=== PATIENT | female | born 1965 | race African-American/Black ===

== ENCOUNTER 2016-11-07 08:43 | Emergency (ER) | payer MEDICAID ==
[2016-11-07 09:01] VITALS: BP 132/87
[2016-11-07] MEDS ORDERED: HYDROmorphone 1 MG/ML Syringe IM ONE (09:17)
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
--- NOTE | 2016-11-07 09:47 | CT ---
Head CT Technique: Multiple axial sections through the brain were obtained. Intravenous contrast was not utilized. Comparison: Previous head CT study of 08/04/16. Findings: Ventricles along with basal cisterns and sulci over the convexities appear within normal limits for the patient's age. Stable low density area is noted within the left basal ganglia. Aneurysm clip is seen within the right suprasellar cistern. Incidental calcifications are seen within the tentorium and within the interhemispheric falx. Low density encephalomalacia is seen within the inferior left temporal lobe with adjacent craniotomy. No acute calvarial abnormality is seen. Impression: 1. Stable findings as noted above. Nothing acute is identified on noncontrast head CT study. Diagnostic code #2
--- NOTE | 2016-11-07 09:51 | CT ---
CT cervical spine Technique: Multiple axial sections were obtained from above C1 inferiorly to the bottom of T1. Reconstructed sagittal and coronal images were reviewed. Comparison: Previous cervical spine plain film of 10/07/14 is available. Findings: Slight degenerative change is noted between the dens and anterior arch of C1. Vertebral body heights and disc spaces are preserved. No bony central or bony neural foraminal stenosis is seen. No fracture is identified. No abnormal subluxation is seen on the reconstructed sagittal images. Lucent lesions are identified within C3 and C4. Minimal degenerative change is scattered within the apophyseal joints. Minimal posterior and anterior spurring is noted at C5-6. Impression: 1. Minimal degenerative change. 2. Lucent lesion within C3 and C4 believed to be benign if patient has no primary carcinoma. 3. No acute fracture or abnormal subluxation is seen. Diagnostic code #3
== END 2016-11-07 11:23 | disposition home or self-care (01) ==
LOC: JD.ED 08:43
DX: M54.2 Cervicalgia (principal); G44.209 Tension-type headache, unspecified, not intractable; I10 Essential (primary) hypertension; J45.909 Unspecified asthma, uncomplicated; F41.8 Other specified anxiety disorders; Z98.890 Other specified postprocedural states; Z90.710 Acquired absence of both cervix and uterus; Z87.891 Personal history of nicotine dependence; Z79.899 Other long term (current) drug therapy; Z88.0 Allergy status to penicillin; Z88.5 Allergy status to narcotic agent; Z88.6 Allergy status to analgesic agent; Z88.8 Allergy status to other drugs, medicaments and biological substances
CPT/HCPCS: 70450; 72125; 96372; 99284; J1170

== ENCOUNTER 2016-11-29 15:03 | Emergency (ER) | payer MEDICAID ==
[2016-11-29 15:20] VITALS: BP 148/91
[2016-11-29] MEDS ORDERED: diphenhydrAMINE 50 MG/ML SDV IM ONE (15:44)
[2016-11-29] MEDS ORDERED: Metoclopramide 10 MG/2 ML SDV IM ONE (15:44)
[2016-11-29] MEDS ORDERED: Haloperidol Lactate 5 MG/ML SDV IM ONE (15:44)
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
[2016-11-29] MEDS ORDERED: Dexamethasone 10 MG/ML SDV IM ONE (16:56)
== END 2016-11-29 17:26 | disposition home or self-care (01) ==
LOC: JD.ED 15:03
DX: G43.909 Migraine, unspecified, not intractable, without status migrainosus (principal); Z87.891 Personal history of nicotine dependence; I10 Essential (primary) hypertension; Z90.710 Acquired absence of both cervix and uterus; Z79.899 Other long term (current) drug therapy; Z88.8 Allergy status to other drugs, medicaments and biological substances; Z88.5 Allergy status to narcotic agent; Z88.0 Allergy status to penicillin; Z91.048 Other nonmedicinal substance allergy status
CPT/HCPCS: 96372; 96374; 99283; J1100; J1200; J1630; J2765

== ENCOUNTER 2016-11-30 17:15 | Emergency (ER) | payer MEDICAID ==
[2016-11-30 17:33] VITALS: BP 166/94
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
== END 2016-11-30 18:25 | disposition home or self-care (01) ==
LOC: JD.ED 17:15
DX: M54.2 Cervicalgia (principal); I10 Essential (primary) hypertension; J45.909 Unspecified asthma, uncomplicated; F41.9 Anxiety disorder, unspecified; F32.9 Major depressive disorder, single episode, unspecified; G43.909 Migraine, unspecified, not intractable, without status migrainosus; Z88.0 Allergy status to penicillin; Z88.8 Allergy status to other drugs, medicaments and biological substances; Z91.018 Allergy to other foods; Z88.5 Allergy status to narcotic agent; Z79.899 Other long term (current) drug therapy; Z90.710 Acquired absence of both cervix and uterus; Z87.891 Personal history of nicotine dependence
CPT/HCPCS: 99283

== ENCOUNTER 2017-01-08 12:39 | Emergency (ER) | payer MEDICAID ==
[2017-01-08 12:56] VITALS: BP 142/94
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
[2017-01-08] MEDS ORDERED: Acetaminophen/oxyCODONE 325-5 MG Tab PO ONE (13:22)
[2017-01-08] MEDS ORDERED: predniSONE 20 MG Tab PO ONE (13:23)
[2017-01-08] MEDS ORDERED: Ondansetron 4 MG Tab.DIS PO ONE (13:23)
== END 2017-01-08 13:37 | disposition home or self-care (01) ==
LOC: JD.ED 12:39
DX: M06.9 Rheumatoid arthritis, unspecified (principal); M79.7 Fibromyalgia; I10 Essential (primary) hypertension; J45.909 Unspecified asthma, uncomplicated; F41.9 Anxiety disorder, unspecified; F32.9 Major depressive disorder, single episode, unspecified; Z88.1 Allergy status to other antibiotic agents; Z88.0 Allergy status to penicillin; Z88.5 Allergy status to narcotic agent; Z79.899 Other long term (current) drug therapy; Z90.710 Acquired absence of both cervix and uterus
CPT/HCPCS: 99283; A9270

== ENCOUNTER 2017-02-13 06:28 | Emergency (ER) | payer MEDICAID ==
[2017-02-13] MEDS ORDERED: Ondansetron 4 MG Tab.DIS PO ONE (07:00)
[2017-02-13] MEDS ORDERED: HYDROmorphone 1 MG/ML Syringe IM ONE (07:00)
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
[2017-02-13 07:27] VITALS: BP 126/79
== END 2017-02-13 07:28 | disposition home or self-care (01) ==
LOC: JD.ED 06:28
DX: M54.2 Cervicalgia (principal); M54.6 Pain in thoracic spine; I10 Essential (primary) hypertension; J45.909 Unspecified asthma, uncomplicated; M19.90 Unspecified osteoarthritis, unspecified site; F41.9 Anxiety disorder, unspecified; F32.9 Major depressive disorder, single episode, unspecified; Z90.710 Acquired absence of both cervix and uterus; Z85.42 Personal history of malignant neoplasm of other parts of uterus; Z87.891 Personal history of nicotine dependence; Z79.899 Other long term (current) drug therapy; Z88.6 Allergy status to analgesic agent; Z91.041 Radiographic dye allergy status; Z88.0 Allergy status to penicillin; Z88.5 Allergy status to narcotic agent; Z91.018 Allergy to other foods
CPT/HCPCS: 96372; 99283; A9270; J1170

== ENCOUNTER 2017-03-06 16:44 | Emergency (ER) | payer MEDICAID ==
[2017-03-06 16:52] VITALS: BP 153/99
[2017-03-06] MEDS ORDERED: Ondansetron 4 MG Tab.DIS PO ONE (17:15)
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
== END 2017-03-06 17:23 | disposition home or self-care (01) ==
LOC: JD.ED 16:44
DX: M54.5 Low back pain (principal); J45.909 Unspecified asthma, uncomplicated; F32.9 Major depressive disorder, single episode, unspecified; M19.90 Unspecified osteoarthritis, unspecified site; Z90.710 Acquired absence of both cervix and uterus; F17.210 Nicotine dependence, cigarettes, uncomplicated; Z85.42 Personal history of malignant neoplasm of other parts of uterus; Z79.899 Other long term (current) drug therapy; Z88.0 Allergy status to penicillin; Z88.5 Allergy status to narcotic agent; Z88.6 Allergy status to analgesic agent; Z88.8 Allergy status to other drugs, medicaments and biological substances; Z91.048 Other nonmedicinal substance allergy status
CPT/HCPCS: 99283; A9270

== ENCOUNTER 2017-03-16 23:16 | Emergency (ER) | payer MEDICAID ==
[2017-03-16 23:33] VITALS: BP 171/96
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
[2017-03-17] MEDS ORDERED: HYDROmorphone 1 MG/ML Syringe IVPUSH ONE ×2 (00:11→01:50)
[2017-03-17] MEDS ORDERED: diphenhydrAMINE 50 MG/ML SDV IVPUSH ONE (00:11)
[2017-03-17] MEDS ORDERED: Metoclopramide 10 MG/2 ML SDV IVPUSH ONE (00:11)
[2017-03-17] MEDS ORDERED: Sodium Chloride 0.9% 1,000 ML IV SCH (00:15)
--- NOTE | 2017-03-18 12:16 | CT ---
Head CT Technique: Multiple axial sections through the brain were obtained. Intravenous contrast was not utilized. Comparison: Prior head CT exam of 11/07/16. Findings: Ventricles along with basal cisterns and sulci over the convexities appear within normal limits for the patient's age. Stable left basal ganglia density is seen. Encephalomalacia and prior craniotomy is noted within the left temporal region which is stable. Aneurysm clip is again noted within the right side of the suprasellar cistern. Additional metallic density seen to the left side of the suprasellar cistern within the anterior left temporal fossa. No other abnormal parenchymal densities are seen. No evidence of intracranial hemorrhage. No midline shift or mass effect is seen. Incidental calcifications within the cerebellar tentorium and interhemispheric falx is seen which is stable. Bone window settings show no acute calvarial abnormality. Impression: 1. Stable findings as described above. Nothing acute is identified on noncontrast head CT exam. Diagnostic code #3 Agree with preliminary report issued by [facility] ([facility] preliminary report dictated on 03/17/17, 2:17 AM Central Time)
== END 2017-03-17 02:32 | disposition home or self-care (01) ==
LOC: JD.ED 23:16
DX: S00.03XA Contusion of scalp, initial encounter (principal); G43.009 Migraine without aura, not intractable, without status migrainosus; I10 Essential (primary) hypertension; J45.909 Unspecified asthma, uncomplicated; M19.90 Unspecified osteoarthritis, unspecified site; F41.9 Anxiety disorder, unspecified; F17.210 Nicotine dependence, cigarettes, uncomplicated; F32.9 Major depressive disorder, single episode, unspecified; Z88.6 Allergy status to analgesic agent; Z88.0 Allergy status to penicillin; Z88.5 Allergy status to narcotic agent; Z91.041 Radiographic dye allergy status; Z79.899 Other long term (current) drug therapy; Z90.710 Acquired absence of both cervix and uterus; W18.49XA Other slipping, tripping and stumbling without falling, initial encounter
CPT/HCPCS: 70450; 96361; 96374; 96375; 96376; 99284; J1170; J1200; J2765; J7040

== ENCOUNTER 2017-05-07 21:59 | Emergency (ER) | payer MEDICAID ==
[2017-05-07 22:15] VITALS: BP 158/91
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
[2017-05-07] MEDS ORDERED: diphenhydrAMINE 50 MG/ML SDV IM ONE (22:34)
[2017-05-07] MEDS ORDERED: Haloperidol Lactate 5 MG/ML SDV IM ONE (22:34)
[2017-05-07] MEDS ORDERED: Dexamethasone 10 MG/ML SDV IM ONE (22:34)
[2017-05-07] MEDS ORDERED: Metoclopramide 10 MG/2 ML SDV IM ONE (22:34)
== END 2017-05-07 23:45 | disposition home or self-care (01) ==
LOC: JD.ED 21:59
DX: G43.909 Migraine, unspecified, not intractable, without status migrainosus (principal); F32.9 Major depressive disorder, single episode, unspecified; F17.210 Nicotine dependence, cigarettes, uncomplicated; Z79.899 Other long term (current) drug therapy; Z88.5 Allergy status to narcotic agent; Z88.6 Allergy status to analgesic agent; Z88.8 Allergy status to other drugs, medicaments and biological substances; Z91.041 Radiographic dye allergy status
CPT/HCPCS: 96372; 99283; J1100; J1200; J1630; J2765

== ENCOUNTER 2017-09-20 18:21 | Emergency (ER) | payer MEDICAID ==
[2017-09-20 18:35] VITALS: BP 148/86
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
== END 2017-09-20 19:10 | disposition home or self-care (01) ==
LOC: JD.ED 18:21
DX: M06.9 Rheumatoid arthritis, unspecified (principal); G89.4 Chronic pain syndrome; F17.210 Nicotine dependence, cigarettes, uncomplicated; I10 Essential (primary) hypertension; M19.90 Unspecified osteoarthritis, unspecified site; F41.9 Anxiety disorder, unspecified; F32.9 Major depressive disorder, single episode, unspecified; Z88.0 Allergy status to penicillin; Z88.6 Allergy status to analgesic agent; Z91.02 Food additives allergy status; Z91.041 Radiographic dye allergy status; Z79.899 Other long term (current) drug therapy; Z91.09 Other allergy status, other than to drugs and biological substances
CPT/HCPCS: 99282; 99283

== ENCOUNTER 2017-12-22 15:15 | Emergency (ER) | payer MEDICAID ==
[2017-12-22 15:24] VITALS: BP 150/114
[2017-12-22] MEDS ORDERED: Diphtheria,Pertussis(Acell),Tetanus Vaccine 0.5 ML SDV IM ONE (17:52)
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
== END 2017-12-22 19:10 | disposition home or self-care (01) ==
LOC: JD.ED 15:15
DX: S81.851A Open bite, right lower leg, initial encounter (principal); I10 Essential (primary) hypertension; F17.210 Nicotine dependence, cigarettes, uncomplicated; W54.0XXA Bitten by dog, initial encounter; Z88.8 Allergy status to other drugs, medicaments and biological substances; Z88.0 Allergy status to penicillin; Z23 Encounter for immunization; Z91.041 Radiographic dye allergy status; Z91.018 Allergy to other foods; Z79.899 Other long term (current) drug therapy
CPT/HCPCS: 90471; 90715; 99283; 99283-25

== ENCOUNTER 2018-09-26 23:29 | Emergency (ER) | payer SELFPAY ==
[2018-09-26 23:40] VITALS: BP 137/118
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
--- NOTE | 2018-09-27 16:26 | CR ---
Right shoulder: Three views of the right shoulder were obtained. Comparison: Prior right shoulder study of 05/18/15. Glenohumeral and acromioclavicular joints appear within normal limits. No fracture, dislocation or other bony abnormality is seen. Impression: 1. No abnormality is identified on right shoulder study. Diagnostic code #1
--- NOTE | 2018-09-27 16:26 | CR ---
Right wrist: Four views of the right wrist were obtained. Comparison: No prior wrist exam. Widening of the distance between the navicular bone and lunate bone is seen compatible with intercarpal ligament rupture. No acute fracture, dislocation or other bony abnormality is seen. Impression: 1. 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 2. Nothing acute is otherwise seen. Diagnostic code #3
--- NOTE | 2018-09-27 16:26 | CR ---
Right elbow: Four views of the right elbow were obtained. Comparison: No prior elbow study. Joint spaces are preserved. No fracture, dislocation or other bony abnormality is seen. Impression: 1. No abnormality is identified on right elbow study. Diagnostic code #1
== END 2018-09-27 01:01 | disposition home or self-care (01) ==
LOC: JD.ED 23:29
DX: S13.9XXA Sprain of joints and ligaments of unspecified parts of neck, initial encounter (principal); S43.491A Other sprain of right shoulder joint, initial encounter; S63.501A Unspecified sprain of right wrist, initial encounter; S53.401A Unspecified sprain of right elbow, initial encounter; S80.11XA Contusion of right lower leg, initial encounter; Z88.6 Allergy status to analgesic agent; Z91.041 Radiographic dye allergy status; Z91.018 Allergy to other foods; Z79.899 Other long term (current) drug therapy; W10.9XXA Fall (on) (from) unspecified stairs and steps, initial encounter
CPT/HCPCS: 73030-26-RT; 73030-RT; 73080-26-RT; 73080-RT; 73110-26-RT; 73110-RT; 99283-25

== ENCOUNTER 2018-10-27 17:03 | Emergency (ER) | payer SELFPAY ==
[2018-10-27 17:12] VITALS: BP 124/85
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
--- NOTE | 2018-10-28 06:42 | CR ---
Right wrist: Four views of the right wrist were obtained. Comparison: Prior right wrist exam of 09/27/18. Distance between the lunate and navicular bone remains widened compatible with previous intercarpal ligament rupture. No acute fracture, dislocation or other bony abnormality is seen. Impression: 1. Previous intercarpal ligament rupture causing widening between the lunate and navicular bone. This is stable from previous exam. 2. No acute abnormality is appreciated. Diagnostic code #3
== END 2018-10-27 18:33 | disposition home or self-care (01) ==
LOC: JD.ED 17:03
DX: S63.501A Unspecified sprain of right wrist, initial encounter (principal); F41.9 Anxiety disorder, unspecified; F32.9 Major depressive disorder, single episode, unspecified; J45.909 Unspecified asthma, uncomplicated; Z79.899 Other long term (current) drug therapy; Z88.6 Allergy status to analgesic agent; Z91.09 Other allergy status, other than to drugs and biological substances; Z91.018 Allergy to other foods; Z91.041 Radiographic dye allergy status; W19.XXXA Unspecified fall, initial encounter
CPT/HCPCS: 29125; 73110-26-RT; 73110-RT; 99283-25

== ENCOUNTER 2021-02-07 11:47 | Emergency (ER) | payer MEDICAID ==
[2021-02-07 12:03] VITALS: BP 141/89; PULSE 69
--- NOTE | 2021-02-07 14:47 | CR ---
Lumbar spine: AP, lateral and coned-down lateral views centered to the lumbosacral junction are obtained. Comparison: Prior lumbar spine study of 10/01/14. Posterior disc space narrowing is noted at L4-5. Moderate disc space narrowing seen at L5-S1. Other disc spaces are fairly well preserved. Pedicles are intact. Visualized transverse and spinous processes are intact. Mild degenerative change is noted within the sacroiliac joints. Impression: 1. Degenerative change as noted above. Degenerative change has progressed from previous study. Diagnostic code #2
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
--- NOTE | 2021-02-08 08:15 | CR ---
Chest: PA and lateral views of the chest were obtained. Comparison: Prior chest x-ray of 11/06/15. Heart size appears slightly enlarged. Tortuous thoracic aorta is noted. Mild area of scarring is noted within the left mid to lower lung. Lungs otherwise are clear with no acute parenchymal change. Bony structures show nothing acute. Impression: 1. Heart size is slightly enlarged. 2. Scarring within the left mid to lower lung. 3. Nothing acute is otherwise seen on 2 view chest x-ray. Diagnostic code #2
== END 2021-02-07 15:00 | disposition home or self-care (01) ==
LOC: JD.ED 11:47
DX: M54.5 Low back pain (principal); M54.6 Pain in thoracic spine; M54.2 Cervicalgia; M25.511 Pain in right shoulder; M25.512 Pain in left shoulder; I10 Essential (primary) hypertension; J45.909 Unspecified asthma, uncomplicated; M19.90 Unspecified osteoarthritis, unspecified site; G43.909 Migraine, unspecified, not intractable, without status migrainosus; E66.9 Obesity, unspecified; Z68.31 Body mass index [BMI] 31.0-31.9, adult; Z72.0 Tobacco use; Z88.6 Allergy status to analgesic agent; Z91.041 Radiographic dye allergy status; Z88.5 Allergy status to narcotic agent; Z88.0 Allergy status to penicillin; Z91.018 Allergy to other foods; Z91.048 Other nonmedicinal substance allergy status; Z79.899 Other long term (current) drug therapy; W18.2XXA Fall in (into) shower or empty bathtub, initial encounter
CPT/HCPCS: 71046; 71046-26; 72100; 72100-26; 99283; 99283-25

== ENCOUNTER 2021-02-11 10:17 | Emergency (ER) | payer MEDICAID ==
[2021-02-11 10:36] VITALS: BP 144/82; PULSE 73
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
--- NOTE | 2021-02-12 10:58 | CR ---
Cervical spine: AP, lateral and odontoid views of the cervical spine were obtained. Comparison: Prior CT cervical spine study of 11/07/16 and 2-view cervical spine study of 10/07/14. Mild disc space narrowing is noted at C5-6. This is stable from prior CT exam. Other disc spaces are maintained. Very minimal anterior osteophytes are seen. Slight degenerative apophyseal change is noted. No acute fracture or subluxation is seen. Impression: 1. Mild degenerative change as noted above. 2. No acute fracture or subluxation is appreciated. Diagnostic code #2
== END 2021-02-11 12:05 | disposition home or self-care (01) ==
LOC: JD.ED 10:17
DX: M54.2 Cervicalgia (principal); I10 Essential (primary) hypertension; J45.909 Unspecified asthma, uncomplicated; M19.90 Unspecified osteoarthritis, unspecified site; E66.9 Obesity, unspecified; Z68.29 Body mass index [BMI] 29.0-29.9, adult; Z88.6 Allergy status to analgesic agent; Z91.041 Radiographic dye allergy status; Z88.5 Allergy status to narcotic agent; Z88.0 Allergy status to penicillin; Z91.018 Allergy to other foods; Z91.048 Other nonmedicinal substance allergy status; Z79.899 Other long term (current) drug therapy
CPT/HCPCS: 72040; 72040-26; 99283; 99283-25

== ENCOUNTER 2021-02-16 15:08 | Emergency (ER) | payer MEDICAID ==
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
[2021-02-16] MEDS ORDERED: Potassium Chloride 20 MEQ Tab.ER PO ONE (16:36)
--- NOTE | 2021-02-16 16:49 | CR ---
Chest: 2 views of the chest were obtained. Comparison: Prior chest x-ray of 02/07/21. Heart size is slightly enlarged. Tortuous thoracic aorta is seen. Slight linear density is noted within the left midlung compatible with scarring. Lungs are clear with no acute parenchymal change. No definite acute osseous abnormality is appreciated on chest x-ray. Impression: 1. Nothing acute is seen. Stable findings as noted above. Diagnostic code #2
[2021-02-16 17:23] VITALS: BP 115/102; PULSE 60
== END 2021-02-16 17:20 | disposition home or self-care (01) ==
LOC: JD.ED 15:08
DX: R07.2 Precordial pain (principal); E87.6 Hypokalemia; M25.532 Pain in left wrist; M25.561 Pain in right knee; I10 Essential (primary) hypertension; J45.909 Unspecified asthma, uncomplicated; M19.90 Unspecified osteoarthritis, unspecified site; E66.9 Obesity, unspecified; Z88.6 Allergy status to analgesic agent; Z91.041 Radiographic dye allergy status; Z88.5 Allergy status to narcotic agent; Z88.0 Allergy status to penicillin; Z91.018 Allergy to other foods; Z91.048 Other nonmedicinal substance allergy status; Z79.899 Other long term (current) drug therapy; W18.30XA Fall on same level, unspecified, initial encounter; Y93.01 Activity, walking, marching and hiking; Y92.89 Other specified places as the place of occurrence of the external cause
CPT/HCPCS: 36415; 71046; 80053; 83735; 84484; 85025; 93005; 99284; A9270; 93010

== ENCOUNTER 2021-02-19 11:30 | Emergency (ER) | payer MEDICAID ==
[2021-02-19 11:58] VITALS: BP 134/69; PULSE 65
[2021-02-19] MEDS ORDERED: HYDROmorphone 0.5 MG/0.5 ML Syringe IVPUSH ONE ×2 (12:08→14:02)
[2021-02-19] MEDS ORDERED: Ondansetron 4 MG/2 ML SDV IVPUSH ONE (12:08)
[2021-02-19] MEDS ORDERED: Sodium Chloride 0.9% 1,000 ML IV STA (12:08)
[2021-02-19] MEDS ORDERED: diphenhydrAMINE 50 MG/ML SDV IVPUSH ONE (12:10)
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
--- NOTE | 2021-02-19 19:45 | CT ---
Head CT Technique: Multiple axial sections through the brain were obtained. Intravenous contrast was not utilized. Reconstructed coronal and sagittal images were obtained. Comparison: Prior head CT study of 03/17/17. Findings: Ventricles along with basal cisterns and sulci over the convexities appear within normal limits for the patient's age. Aneurysm clip is seen within the right superior suprasellar cistern. Additional aneurysm clip is seen on the left side in the area of the middle cerebral artery. Low density is noted within the left temporal lobe which is stable. Low density is noted within the left basal ganglia which is also stable. Slight low density is noted within the right frontal lobe which is not appreciated on CT exam and difficult to exclude an early area of infarct. No other abnormal parenchymal densities are seen. No evidence of intracranial hemorrhage is seen. No midline shift or mass-effect is appreciated. Bone window settings were reviewed. Visualized paranasal sinuses and mastoid sinuses are clear. Prior left-sided old craniotomy is again noted. No acute calvarial abnormality is appreciated. Impression: 1. Stable changes from prior craniotomy and aneurysm clip placements as noted above. 2. Low density within the left basal ganglia and left temporal lobe compatible with previous surgery. 3. Vague low density within the posterior right frontal region suspicious for early infarct. Recommend MRI to further evaluate. Diagnostic code #5 I agree with preliminary report from [facility], finalized on 02/19/21, 2:20 PM CDT, code 2
== END 2021-02-19 14:45 | disposition home or self-care (01) ==
LOC: JD.ED 11:30
DX: G43.909 Migraine, unspecified, not intractable, without status migrainosus (principal); I10 Essential (primary) hypertension; J45.909 Unspecified asthma, uncomplicated; K21.9 Gastro-esophageal reflux disease without esophagitis; M19.90 Unspecified osteoarthritis, unspecified site; E66.9 Obesity, unspecified; Z68.28 Body mass index [BMI] 28.0-28.9, adult; Z88.6 Allergy status to analgesic agent; Z88.5 Allergy status to narcotic agent; Z91.041 Radiographic dye allergy status; Z88.0 Allergy status to penicillin; Z91.018 Allergy to other foods; Z91.048 Other nonmedicinal substance allergy status; Z88.8 Allergy status to other drugs, medicaments and biological substances; Z79.899 Other long term (current) drug therapy
CPT/HCPCS: 36415; 70450; 80053; 85025; 96374; 96375; 96376; 99284; J1170; J1200; J2405; J7030

== ENCOUNTER 2021-02-25 19:33 | Emergency (ER) | payer MEDICAID ==
[2021-02-25 20:06] VITALS: BP 131/79; PULSE 66
[2021-02-25] MEDS ORDERED: Metoclopramide 10 MG/2 ML SDV IM ONE (20:08)
[2021-02-25] MEDS ORDERED: diphenhydrAMINE 50 MG/ML SDV IM ONE (20:08)
[2021-02-25] MEDS ORDERED: HYDROmorphone 0.5 MG/0.5 ML Syringe IM ONE (20:08)
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
== END 2021-02-25 21:09 | disposition home or self-care (01) ==
LOC: JD.ED 19:33
DX: G43.009 Migraine without aura, not intractable, without status migrainosus (principal); I10 Essential (primary) hypertension; J45.909 Unspecified asthma, uncomplicated; K21.9 Gastro-esophageal reflux disease without esophagitis; M19.90 Unspecified osteoarthritis, unspecified site; E66.9 Obesity, unspecified; Z68.29 Body mass index [BMI] 29.0-29.9, adult; Z72.0 Tobacco use; Z88.6 Allergy status to analgesic agent; Z91.041 Radiographic dye allergy status; Z88.5 Allergy status to narcotic agent; Z88.0 Allergy status to penicillin; Z91.018 Allergy to other foods; Z91.048 Other nonmedicinal substance allergy status; Z79.899 Other long term (current) drug therapy
CPT/HCPCS: 96372; 99283; J1170; J1200; J2765

== ENCOUNTER 2021-03-11 09:31 | Emergency (ER) | payer MEDICAID ==
[2021-03-11 09:51] VITALS: BP 153/78; PULSE 67
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
--- NOTE | 2021-03-11 11:40 | CT ---
CT thoracic spine Technique: Multiple axial sections were obtained through the thoracic spine. Reconstructed coronal and sagittal images were obtained. Comparison: No prior thoracic spine imaging is available. Findings: Vertebral body heights and disc space is are maintained. Several minimal areas of vacuum disc phenomena are noted within the lower thoracic spine. No fracture is seen. No abnormal subluxation is seen. Lungs that are visualized appear to be clear. No paravertebral soft tissue swelling is identified. Impression: 1. Minimal degenerative change as described above. 2. Nothing acute is appreciated on CT study of the thoracic spine. Diagnostic code #2
--- NOTE | 2021-03-12 07:01 | CR ---
Right wrist: 4 views of the right wrist were obtained. Comparison: Prior right wrist exam of 09/26/18. Widening of the distance between the lunate and navicular bone is noted which is compatible with chronic intercarpal ligament rupture. This is stable from prior exam. Joint spaces otherwise are preserved. No acute fracture, dislocation or other bony abnormality is appreciated. Impression: 1. 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 This is stable from previous exam. 2. Nothing acute is appreciated on right wrist exam. Diagnostic code #3
== END 2021-03-11 11:55 | disposition home or self-care (01) ==
LOC: JD.ED 09:31
DX: S60.211A Contusion of right wrist, initial encounter (principal); S20.222A Contusion of left back wall of thorax, initial encounter; S20.221A Contusion of right back wall of thorax, initial encounter; I10 Essential (primary) hypertension; J45.909 Unspecified asthma, uncomplicated; K21.9 Gastro-esophageal reflux disease without esophagitis; M19.90 Unspecified osteoarthritis, unspecified site; E66.9 Obesity, unspecified; Z68.28 Body mass index [BMI] 28.0-28.9, adult; Z88.6 Allergy status to analgesic agent; Z91.041 Radiographic dye allergy status; Z88.5 Allergy status to narcotic agent; Z88.0 Allergy status to penicillin; Z91.018 Allergy to other foods; Z91.048 Other nonmedicinal substance allergy status; Z79.899 Other long term (current) drug therapy; W01.0XXA Fall on same level from slipping, tripping and stumbling without subsequent striking against object, initial encounter; Y92.009 Unspecified place in unspecified non-institutional (private) residence as the place of occurrence of the external cause
CPT/HCPCS: 72128; 72128-26; 73110-26-RT; 73110-RT; 99284; 99284-25

== ENCOUNTER 2021-03-15 16:04 | Emergency (ER) | payer MEDICAID ==
[2021-03-15 16:22] VITALS: BP 129/74; PULSE 81
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
== END 2021-03-15 17:46 | disposition home or self-care (01) ==
LOC: JD.ED 16:04
DX: S39.012A Strain of muscle, fascia and tendon of lower back, initial encounter (principal); R30.0 Dysuria; I10 Essential (primary) hypertension; J45.909 Unspecified asthma, uncomplicated; Z91.041 Radiographic dye allergy status; Z88.8 Allergy status to other drugs, medicaments and biological substances; Z88.5 Allergy status to narcotic agent; Z91.018 Allergy to other foods; Z88.6 Allergy status to analgesic agent; Z91.09 Other allergy status, other than to drugs and biological substances; X58.XXXA Exposure to other specified factors, initial encounter
CPT/HCPCS: 81001; 99282; 99284

== ENCOUNTER 2021-03-19 08:31 | Emergency (ER) | payer MEDICAID ==
[2021-03-19 08:57] VITALS: BP 148/79; PULSE 83
[2021-03-19] MEDS ORDERED: HYDROmorphone 1 MG/ML Syringe IM ONE (09:18)
[2021-03-19] MEDS ORDERED: Cyclobenzaprine 10 MG Tab PO ONE (09:18)
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
--- NOTE | 2021-03-20 07:06 | CR ---
Cervical spine: AP, lateral and odontoid views of the cervical spine were obtained. Comparison: Prior cervical spine x-ray of 02/11/[address] cervical spine exam of 11/07/16. Mild disc space narrowing is noted at C5-6 with posterior osteophytes. Other vertebral body heights and disc spaces are maintained. Mild degenerative change is noted between the dens and anterior arch of C1. Small calcification is seen of the anterior and inferior endplates of C5 and C6 which appear to be chronic. Mild scattered degenerative change is seen within the apophyseal joints. No acute fracture or subluxation is seen. Impression: 1. Mild degenerative change. 2. Nothing acute is appreciated on 3 view cervical spine study. Diagnostic code #2
--- NOTE | 2021-03-20 07:06 | CR ---
Lumbar spine: AP and lateral views of the lumbar spine were obtained. Comparison: Prior lumbar spine exam of 02/07/21. Slight posterior disc space narrowing is noted at L4-5. Other disc spaces and vertebral body heights are maintained. Pedicles are intact. Visualized transverse and spinous processes are intact. Slight degenerative change is seen within the sacroiliac joints. No discrete fracture or subluxation is seen. Impression: 1. Minimal degenerative change. 2. Nothing acute is seen on 2 view lumbar spine study. Diagnostic code #2
== END 2021-03-19 11:00 | disposition home or self-care (01) ==
LOC: JD.ED 08:31
DX: M54.2 Cervicalgia (principal); M54.5 Low back pain; I10 Essential (primary) hypertension; J45.909 Unspecified asthma, uncomplicated; M19.90 Unspecified osteoarthritis, unspecified site; E66.9 Obesity, unspecified; Z68.29 Body mass index [BMI] 29.0-29.9, adult; Z88.6 Allergy status to analgesic agent; Z91.041 Radiographic dye allergy status; Z88.5 Allergy status to narcotic agent; Z88.0 Allergy status to penicillin; Z91.048 Other nonmedicinal substance allergy status; Z88.8 Allergy status to other drugs, medicaments and biological substances; Z91.018 Allergy to other foods; Z79.899 Other long term (current) drug therapy
CPT/HCPCS: 72040; 72100; 96372; 99283; A9270; J1170

== ENCOUNTER 2021-03-22 15:23 | Emergency (ER) | payer MEDICAID ==
[2021-03-22 15:38] VITALS: BP 143/81; PULSE 69
[2021-03-22] MEDS ORDERED: Acetaminophen 325 MG Tab PO ONE (15:58)
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
== END 2021-03-22 16:13 | disposition home or self-care (01) ==
LOC: JD.ED 15:23
DX: G89.29 Other chronic pain (principal); M54.5 Low back pain; I10 Essential (primary) hypertension; K21.9 Gastro-esophageal reflux disease without esophagitis; E66.9 Obesity, unspecified; Z68.30 Body mass index [BMI] 30.0-30.9, adult; Z87.891 Personal history of nicotine dependence; Z91.041 Radiographic dye allergy status; Z88.6 Allergy status to analgesic agent; Z88.8 Allergy status to other drugs, medicaments and biological substances; Z88.0 Allergy status to penicillin; Z91.018 Allergy to other foods; Z91.09 Other allergy status, other than to drugs and biological substances
CPT/HCPCS: 99283; A9270

== ENCOUNTER 2021-03-24 13:43 | Emergency (ER) | payer MEDICAID ==
[2021-03-24 14:07] VITALS: BP 166/100; PULSE 83
[2021-03-24] MEDS ORDERED: Acetaminophen 325 MG Tab PO ONE (14:31)
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
== END 2021-03-24 15:31 | disposition left against medical advice (07) ==
LOC: JD.ED 13:43
DX: R10.9 Unspecified abdominal pain (principal); R31.9 Hematuria, unspecified; E66.9 Obesity, unspecified; Z91.041 Radiographic dye allergy status; Z88.0 Allergy status to penicillin; Z88.6 Allergy status to analgesic agent; Z88.5 Allergy status to narcotic agent; Z91.09 Other allergy status, other than to drugs and biological substances; Z91.018 Allergy to other foods; Z72.0 Tobacco use; Z68.29 Body mass index [BMI] 29.0-29.9, adult
CPT/HCPCS: 36415; 80053; 81001; 85025; 99284; A9270; 99283

== ENCOUNTER 2021-03-25 12:20 | Emergency (ER) | payer MEDICAID ==
[2021-03-25 12:52] VITALS: BP 166/97; PULSE 66
[2021-03-25] MEDS ORDERED: Ondansetron 4 MG Tab.DIS PO ONE (13:17)
[2021-03-25] MEDS ORDERED: Acetaminophen 325 MG Tab PO ONE (13:18)
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
--- NOTE | 2021-03-26 16:50 | CT ---
CT abdomen and pelvis Technique: Multiple axial sections were obtained from above the dome of the diaphragm inferiorly through the pubic symphysis. Intravenous and oral contrast were not utilized. Study has been performed as a ureteral stone protocol. Reconstructed coronal and sagittal images were also obtained. Comparison: No prior CT abdomen or pelvis study is available, previous abdominal ultrasound of 02/03/15 is available. Findings: Very minimal bilateral pleural effusions are seen. Very minimal pericardial fluid is seen. Small scar is noted within the upper left kidney along the cortex. I do not see any definite renal calculi on this exam. No ureteral dilatation or ureteral stone is seen. No bladder calculi are seen. Adrenal glands show no nodule. Pancreas shows no abnormality. Gallbladder contains no calcified gallstones. Abdominal aorta shows no aneurysm. No retroperitoneal adenopathy or mesenteric abnormalities are seen. Appendix is seen which is normal. No pelvic mass or adenopathy is seen. Bone window settings were reviewed which show minimal scattered degenerative change within the lumbar and thoracic spine. Slight degenerative change is noted within both hips. Impression: 1. No definite calcifications are appreciated within the kidneys. No ureteral dilatation or ureteral calculi are seen. 2. Mild chronic bone findings as noted above. 3. Minimal pleural effusions and minimal pericardial effusion is seen. Diagnostic code #3 I slightly disagree with preliminary report from [facility], finalized on 03/25/21, 3:23 PM CDT, code 2
== END 2021-03-25 14:40 | disposition home or self-care (01) ==
LOC: JD.ED 12:20
DX: R10.9 Unspecified abdominal pain (principal); I10 Essential (primary) hypertension; Z72.0 Tobacco use; Z88.0 Allergy status to penicillin; Z88.5 Allergy status to narcotic agent; Z91.018 Allergy to other foods; Z88.6 Allergy status to analgesic agent; Z91.09 Other allergy status, other than to drugs and biological substances; Z91.041 Radiographic dye allergy status
CPT/HCPCS: 36415; 74176; 80053; 81001; 83735; 85025; 86140; 99284; A9270; 99283

== ENCOUNTER 2021-04-03 15:35 | Emergency (ER) | payer MEDICAID ==
[2021-04-03 17:32] VITALS: BP 152/94; PULSE 86
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
== END 2021-04-03 17:58 | disposition home or self-care (01) ==
LOC: JD.ED 15:35
DX: G89.29 Other chronic pain (principal); M54.5 Low back pain; I10 Essential (primary) hypertension; J45.909 Unspecified asthma, uncomplicated; M19.90 Unspecified osteoarthritis, unspecified site; E66.9 Obesity, unspecified; Z68.30 Body mass index [BMI] 30.0-30.9, adult; Z88.6 Allergy status to analgesic agent; Z91.041 Radiographic dye allergy status; Z88.5 Allergy status to narcotic agent; Z88.0 Allergy status to penicillin; Z91.048 Other nonmedicinal substance allergy status; Z91.018 Allergy to other foods; Z79.899 Other long term (current) drug therapy
CPT/HCPCS: 99283

== ENCOUNTER 2021-04-07 15:14 | Emergency (ER) | payer MEDICAID ==
[2021-04-07 15:56] VITALS: BP 148/84
[2021-04-07 15:59] VITALS: PULSE 84
[2021-04-07] MEDS ORDERED: FLU Vacc QS2021-22 36MOS UP/PF 60 MCG/0.5 ML Syringe IM ONE (16:30)
[2021-04-07] MEDS ORDERED: HYDROmorphone 1 MG/ML Syringe IM ONE (16:36)
[2021-04-07] MEDS ORDERED: diphenhydrAMINE 50 MG/ML SDV IM ONE (16:36)
[2021-04-07] MEDS ORDERED: Metoclopramide 10 MG/2 ML SDV IM ONE (16:36)
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
== END 2021-04-07 18:20 | disposition home or self-care (01) ==
LOC: JD.ED 15:14
DX: G43.009 Migraine without aura, not intractable, without status migrainosus (principal); J45.909 Unspecified asthma, uncomplicated; E66.9 Obesity, unspecified; Z68.30 Body mass index [BMI] 30.0-30.9, adult; Z87.891 Personal history of nicotine dependence; Z23 Encounter for immunization; Z88.6 Allergy status to analgesic agent; Z91.041 Radiographic dye allergy status; Z88.5 Allergy status to narcotic agent; Z88.0 Allergy status to penicillin; Z91.018 Allergy to other foods; Z91.048 Other nonmedicinal substance allergy status; Z79.899 Other long term (current) drug therapy
CPT/HCPCS: 90471; 90686; 96372; 99283; J1170; J1200; J2765; G0008

== ENCOUNTER 2021-04-09 14:43 | Emergency (ER) | payer MEDICAID | END 2021-04-09 15:16 | disposition left against medical advice (07) | LOC: JD.ED 14:43 | DX: Z53.21 Procedure and treatment not carried out due to patient leaving prior to being seen by health care provider (principal) ==

== ENCOUNTER 2021-04-09 15:39 | Emergency (ER) | payer MEDICAID ==
[2021-04-09 16:51] VITALS: BP 191/107; PULSE 85
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
[2021-04-09] MEDS ORDERED: Promethazine 25 MG/ML SDV IM ONE (16:59)
== END 2021-04-09 17:20 | disposition home or self-care (01) ==
LOC: JD.ED 15:39
DX: R51.9 Headache, unspecified (principal); K21.9 Gastro-esophageal reflux disease without esophagitis; E87.6 Hypokalemia; E66.9 Obesity, unspecified; Z68.41 Body mass index [BMI] 40.0-44.9, adult; Z88.0 Allergy status to penicillin; Z88.1 Allergy status to other antibiotic agents; Z88.8 Allergy status to other drugs, medicaments and biological substances; Z91.018 Allergy to other foods; Z79.899 Other long term (current) drug therapy
CPT/HCPCS: 96372; 99283; J2550

== ENCOUNTER 2021-04-28 18:16 | Emergency (ER) | payer MEDICAID ==
[2021-04-28 18:35] VITALS: BP 153/81; PULSE 96
[2021-04-28] MEDS ORDERED: Acetaminophen 325 MG Tab PO ONE (19:19)
[2021-04-28] MEDS ORDERED: Orphenadrine 100 MG Tab.ER PO STA (19:19)
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
== END 2021-04-28 19:52 | disposition home or self-care (01) ==
LOC: JD.ED 18:16
DX: M54.6 Pain in thoracic spine (principal); M19.90 Unspecified osteoarthritis, unspecified site; E66.9 Obesity, unspecified; Z68.31 Body mass index [BMI] 31.0-31.9, adult; Z87.891 Personal history of nicotine dependence; Z88.6 Allergy status to analgesic agent; Z91.041 Radiographic dye allergy status; Z88.5 Allergy status to narcotic agent; Z88.0 Allergy status to penicillin; Z91.018 Allergy to other foods; Z91.048 Other nonmedicinal substance allergy status; Z79.899 Other long term (current) drug therapy
CPT/HCPCS: 99283; A9270

== ENCOUNTER 2021-05-08 11:41 | Emergency (ER) | payer MEDICAID ==
[2021-05-08 12:10] VITALS: BP 142/69; PULSE 83
--- NOTE | 2021-05-08 13:43 | CR ---
Chest: Portable view of the chest was obtained. Comparison: Prior chest x-ray of 02/16/21. Heart size and mediastinum are within normal limits for portable technique. Minimal scarring is seen within the left mid to lower lung. Lungs otherwise are clear with no acute parenchymal change. Bony structures show nothing acute. Impression: 1. Nothing acute is seen on portable chest x-ray. Diagnostic code #2
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
== END 2021-05-08 14:49 | disposition home or self-care (01) ==
LOC: JD.ED 11:41
DX: R07.89 Other chest pain (principal); E66.9 Obesity, unspecified; Z68.32 Body mass index [BMI] 32.0-32.9, adult; Z88.6 Allergy status to analgesic agent; Z91.041 Radiographic dye allergy status; Z88.5 Allergy status to narcotic agent; Z88.0 Allergy status to penicillin; Z91.018 Allergy to other foods; Z91.048 Other nonmedicinal substance allergy status; Z79.899 Other long term (current) drug therapy
CPT/HCPCS: 36415; 71045; 71045-26; 84484; 93005; 99285-25

== ENCOUNTER 2021-05-20 13:21 | Emergency (ER) | payer MEDICAID ==
[2021-05-20 15:30] VITALS: BP 140/87; PULSE 90
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
[2021-05-20] MEDS ORDERED: Acetaminophen 325 MG Tab PO ONE (17:07)
[2021-05-20] MEDS ORDERED: Orphenadrine 100 MG Tab.ER PO ONE (17:07)
--- NOTE | 2021-05-20 17:43 | CR ---
Lumbar spine: AP and lateral views of the lumbar spine were obtained. Comparison: Prior 2-view lumbar spine study of 03/19/21. Mild posterior scattered disc space narrowing is seen throughout the lumbar spine. Vertebral body heights and disc spaces are maintained. Visualized transverse and spinous processes are intact. Sacroiliac joints appear within normal limits. Impression: 1. Mild diffuse posterior disc space narrowing. 2. Two-view lumbar spine study is otherwise unremarkable. Diagnostic code #2
== END 2021-05-20 17:24 | disposition home or self-care (01) ==
LOC: JD.ED 13:21
DX: S39.012A Strain of muscle, fascia and tendon of lower back, initial encounter (principal); E66.9 Obesity, unspecified; Z68.31 Body mass index [BMI] 31.0-31.9, adult; Z88.8 Allergy status to other drugs, medicaments and biological substances; Z91.041 Radiographic dye allergy status; Z88.0 Allergy status to penicillin; Z88.6 Allergy status to analgesic agent; Z91.018 Allergy to other foods; Z91.048 Other nonmedicinal substance allergy status; Z86.73 Personal history of transient ischemic attack (TIA), and cerebral infarction without residual deficits; W18.49XA Other slipping, tripping and stumbling without falling, initial encounter
CPT/HCPCS: 72100; 99283; A9270

== ENCOUNTER 2021-05-28 14:02 | Emergency (ER) | payer MEDICAID ==
[2021-05-28 14:20] VITALS: BP 161/94; PULSE 116
[2021-05-28] MEDS ORDERED: Sodium Chloride 0.9% 1,000 ML IV ONE (14:36)
[2021-05-28] MEDS ORDERED: diphenhydrAMINE 50 MG/ML SDV IVPUSH ONE (14:36)
[2021-05-28] MEDS ORDERED: Metoclopramide 10 MG/2 ML SDV IVPUSH ONE (14:36)
[2021-05-28] MEDS ORDERED: HYDROmorphone 0.5 MG/0.5 ML Syringe IVPUSH ONE (14:36)
[2021-05-28] MEDS ORDERED: Sodium Chloride 0.9% 10 ML Syringe FLUSH PRN (14:36)
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
[2021-05-28] MEDS ORDERED: Magnesium Oxide 400 MG Tab PO ONE (16:01)
[2021-05-28] MEDS ORDERED: Potassium Chloride 20 MEQ Tab.ER PO ONE (16:01)
== END 2021-05-28 16:41 | disposition home or self-care (01) ==
LOC: JD.ED 14:02
DX: G43.009 Migraine without aura, not intractable, without status migrainosus (principal); K21.9 Gastro-esophageal reflux disease without esophagitis; E66.9 Obesity, unspecified; Z68.32 Body mass index [BMI] 32.0-32.9, adult; Z86.73 Personal history of transient ischemic attack (TIA), and cerebral infarction without residual deficits; Z88.0 Allergy status to penicillin; Z91.018 Allergy to other foods; Z88.5 Allergy status to narcotic agent; Z91.041 Radiographic dye allergy status; Z88.8 Allergy status to other drugs, medicaments and biological substances; Z79.899 Other long term (current) drug therapy; Z88.6 Allergy status to analgesic agent
CPT/HCPCS: 36415; 80053; 83735; 85025; 96374; 96375; 99283; A9270; J1170; J1200; J2765; J7030; 99284

== ENCOUNTER 2021-06-16 15:56 | Emergency (ER) | payer MEDICAID ==
[2021-06-16 16:18] VITALS: BP 149/99; PULSE 100
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
== END 2021-06-16 16:38 | disposition home or self-care (01) ==
LOC: JD.ED 15:56
DX: G89.4 Chronic pain syndrome (principal); E66.9 Obesity, unspecified; K21.9 Gastro-esophageal reflux disease without esophagitis; Z86.73 Personal history of transient ischemic attack (TIA), and cerebral infarction without residual deficits; Z68.30 Body mass index [BMI] 30.0-30.9, adult; Z79.899 Other long term (current) drug therapy
CPT/HCPCS: 99283

== ENCOUNTER 2021-06-28 14:58 | Emergency (ER) | payer MEDICAID ==
[2021-06-28 15:17] VITALS: BP 139/95; PULSE 113
[2021-06-28] MEDS ORDERED: Ondansetron 4 MG Tab.DIS PO ONE (15:42)
[2021-06-28] MEDS ORDERED: Acetaminophen/oxyCODONE 325-5 MG Tab PO ONE (15:42)
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
--- NOTE | 2021-06-28 16:29 | CT ---
CT cervical spine Technique: Multiple axial sections through the cervical spine were obtained from above C1 inferiorly through the T2 level. Reconstructed coronal and sagittal images were obtained. Comparison: Prior CT cervical spine study of 11/07/16. Findings: Mild degenerative change is noted between the dens and anterior arch of C1. Vertebral body heights are maintained. There is a cyst noted within the C4 vertebral body which is stable. Mild disc space narrowing is seen at C4-5. Moderate disc space narrowing is noted at C5-6. Mild disc space narrowing is noted at C6-7. Posterior spurring is noted at C5-6. Mild degenerative apophyseal change is seen throughout the cervical spine. Neural foramina are fairly well patent. No bony central canal stenosis is seen. No fracture is seen. No abnormal subluxation is seen. Impression: 1. Degenerative change as noted above. 2. No acute fracture or abnormal subluxation is seen. Diagnostic code #2
--- NOTE | 2021-06-28 16:31 | CT ---
Head CT Technique: Multiple axial sections through the brain were obtained. Intravenous contrast was not utilized. Reconstructed coronal and sagittal images were obtained. Comparison: Prior head CT study of 02/19/21. Findings: Prior craniotomy is noted on the left side. Encephalomalacia is noted within the left temporal lobe. Aneurysm clip is seen within the suprasellar cistern. Additional aneurysm clip is noted on the left side within the distribution of the middle cerebral artery. There is low density being seen within the posterior right frontal region which is stable. Low density is noted within the left basal ganglia compatible with old infarct which is stable. No other abnormal parenchymal densities are seen. No evidence of intracranial hemorrhage is seen. No midline shift or mass-effect is seen. Bone window settings were reviewed. Visualized mastoid sinuses and paranasal sinuses show nothing acute. No acute calvarial abnormality is appreciated. Impression: 1. Prior surgery with craniotomy as noted above with aneurysm clips. 2. Low density within the left temporal lobe as well as right posterior frontal region which are stable from prior exam. 3. Other senescent change as noted above. Nothing acute is appreciated on noncontrast head CT study. Diagnostic code #2
--- NOTE | 2021-06-28 16:34 | CR ---
Thoracic spine: AP and lateral views of the thoracic spine were obtained. Comparison: Prior CT thoracic spine study of 03/11/21. Very slight scattered disc space narrowing is seen. Vertebral body heights are maintained. Minimal scoliosis is noted. Pedicles are intact. No subluxation or fracture is seen. Impression: 1. Minimal degenerative change and slight scoliosis. 2. Nothing acute is appreciated on two-view thoracic spine study. Diagnostic code #2
== END 2021-06-28 17:15 | disposition home or self-care (01) ==
LOC: JD.ED 14:58
DX: S09.90XA Unspecified injury of head, initial encounter (principal); M54.2 Cervicalgia; E66.9 Obesity, unspecified; Z68.32 Body mass index [BMI] 32.0-32.9, adult; Z87.891 Personal history of nicotine dependence; Z86.73 Personal history of transient ischemic attack (TIA), and cerebral infarction without residual deficits; Z91.041 Radiographic dye allergy status; Z88.6 Allergy status to analgesic agent; Z88.8 Allergy status to other drugs, medicaments and biological substances; Z88.0 Allergy status to penicillin; Z91.018 Allergy to other foods; Z79.899 Other long term (current) drug therapy; W00.0XXA Fall on same level due to ice and snow, initial encounter
CPT/HCPCS: 70450; 72072; 72125; 99284; A9270

== ENCOUNTER 2021-06-30 11:19 | Emergency (ER) | payer MEDICAID ==
[2021-06-30 11:47] VITALS: BP 145/77; PULSE 100
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
== END 2021-06-30 12:29 | disposition home or self-care (01) ==
LOC: JD.ED 11:19
DX: M54.9 Dorsalgia, unspecified (principal); K21.9 Gastro-esophageal reflux disease without esophagitis; E66.9 Obesity, unspecified; Z68.32 Body mass index [BMI] 32.0-32.9, adult; Z86.73 Personal history of transient ischemic attack (TIA), and cerebral infarction without residual deficits; Z88.8 Allergy status to other drugs, medicaments and biological substances; Z88.0 Allergy status to penicillin; Z91.041 Radiographic dye allergy status; Z88.5 Allergy status to narcotic agent; Z88.6 Allergy status to analgesic agent; Z91.048 Other nonmedicinal substance allergy status; Z79.899 Other long term (current) drug therapy
CPT/HCPCS: 99283

== ENCOUNTER 2021-07-19 13:45 | Emergency (ER) | payer MEDICAID ==
[2021-07-19 13:58] VITALS: BP 150/86; PULSE 100
[2021-07-19] MEDS ORDERED: prednisoLONE Soln 15 MG/5 ML UD Cup PO ONE (14:34)
== END 2021-07-19 15:00 | disposition home or self-care (01) ==
LOC: JD.ED 13:45
DX: M06.9 Rheumatoid arthritis, unspecified (principal); E66.9 Obesity, unspecified; Z91.041 Radiographic dye allergy status; Z88.8 Allergy status to other drugs, medicaments and biological substances; Z88.0 Allergy status to penicillin; Z88.5 Allergy status to narcotic agent; Z88.6 Allergy status to analgesic agent; Z79.899 Other long term (current) drug therapy; Z86.73 Personal history of transient ischemic attack (TIA), and cerebral infarction without residual deficits; Z68.32 Body mass index [BMI] 32.0-32.9, adult
CPT/HCPCS: 99283; A9270

== ENCOUNTER 2021-07-23 06:47 | Emergency (ER) | payer MEDICAID ==
[2021-07-23 07:08] VITALS: BP 160/92; PULSE 93
[2021-07-23] MEDS ORDERED: diphenhydrAMINE 50 MG/ML SDV IVPUSH ONE ×2 (07:13→08:58)
[2021-07-23] MEDS ORDERED: HYDROmorphone 1 MG/ML Syringe IVPUSH ONE ×2 (07:13→08:07)
[2021-07-23] MEDS ORDERED: Metoclopramide 10 MG/2 ML SDV IVPUSH ONE (07:14)
[2021-07-23] MEDS ORDERED: Dextrose 5%-0.9% NaCl 1,000 ML IV SCH (07:15)
[2021-07-23 09:33] LABS: CORONAVIRUS COVID-19 NAA NEGATIVE (NEGATIVE)
== END 2021-07-23 09:24 | disposition home or self-care (01) ==
LOC: JD.ED 06:47
DX: G43.009 Migraine without aura, not intractable, without status migrainosus (principal); R11.14 Bilious vomiting; J45.909 Unspecified asthma, uncomplicated; K21.9 Gastro-esophageal reflux disease without esophagitis; E66.9 Obesity, unspecified; Z68.33 Body mass index [BMI] 33.0-33.9, adult; Z88.6 Allergy status to analgesic agent; Z91.041 Radiographic dye allergy status; Z88.5 Allergy status to narcotic agent; Z88.0 Allergy status to penicillin; Z91.018 Allergy to other foods; Z91.048 Other nonmedicinal substance allergy status; Z88.8 Allergy status to other drugs, medicaments and biological substances; Z79.899 Other long term (current) drug therapy; Z20.822 Contact with and (suspected) exposure to COVID-19
CPT/HCPCS: 0241U; 96374; 96375; 96376; 99284; J1170; J1200; J2765; J7042

== ENCOUNTER 2021-08-09 14:22 | Emergency (ER) | payer MEDICAID ==
[2021-08-09 14:34] VITALS: BP 149/97; PULSE 111
[2021-08-09] MEDS ORDERED: Acetaminophen/HYDROcodone 325-5 MG Tab PO ONE (15:05)
== END 2021-08-09 14:45 | disposition home or self-care (01) ==
LOC: JD.ED 14:22
DX: M79.7 Fibromyalgia (principal); M06.9 Rheumatoid arthritis, unspecified; J45.909 Unspecified asthma, uncomplicated; K21.9 Gastro-esophageal reflux disease without esophagitis; Z88.0 Allergy status to penicillin; Z91.041 Radiographic dye allergy status; Z88.8 Allergy status to other drugs, medicaments and biological substances; Z88.6 Allergy status to analgesic agent; Z91.018 Allergy to other foods; Z88.5 Allergy status to narcotic agent; Z79.899 Other long term (current) drug therapy
CPT/HCPCS: 99283; A9270; 99284

== ENCOUNTER 2021-09-08 11:41 | Emergency (ER) | payer MEDICAID ==
[2021-09-08 12:30] VITALS: BP 124/107; PULSE 105
[2021-09-08] MEDS ORDERED: diphenhydrAMINE 50 MG/ML SDV IM ONE (12:43)
[2021-09-08] MEDS ORDERED: HYDROmorphone 1 MG/ML Syringe IM ONE (13:23)
== END 2021-09-08 13:57 | disposition home or self-care (01) ==
LOC: JD.ED 11:41
DX: G43.009 Migraine without aura, not intractable, without status migrainosus (principal); K21.9 Gastro-esophageal reflux disease without esophagitis; J45.909 Unspecified asthma, uncomplicated; E66.9 Obesity, unspecified; Z68.33 Body mass index [BMI] 33.0-33.9, adult; Z86.73 Personal history of transient ischemic attack (TIA), and cerebral infarction without residual deficits; Z91.041 Radiographic dye allergy status; Z88.0 Allergy status to penicillin; Z88.5 Allergy status to narcotic agent; Z91.018 Allergy to other foods; Z88.6 Allergy status to analgesic agent; Z88.8 Allergy status to other drugs, medicaments and biological substances; Z79.899 Other long term (current) drug therapy
CPT/HCPCS: 96372; 99283; J1170; J1200; J3230; 99284

== ENCOUNTER 2021-09-10 10:49 | Emergency (ER) | payer MEDICAID ==
[2021-09-10 11:06] VITALS: BP 158/87; PULSE 88
[2021-09-10] MEDS ORDERED: HYDROmorphone 1 MG/ML Syringe IM ONE (11:36)
[2021-09-10] MEDS ORDERED: Ondansetron 4 MG Tab.DIS PO ONE (11:39)
== END 2021-09-10 13:25 ==
LOC: JD.ED 10:49
DX: R51.9 Headache, unspecified (principal); K21.9 Gastro-esophageal reflux disease without esophagitis; E66.9 Obesity, unspecified; Z68.32 Body mass index [BMI] 32.0-32.9, adult; Z88.8 Allergy status to other drugs, medicaments and biological substances; Z87.891 Personal history of nicotine dependence; Z86.73 Personal history of transient ischemic attack (TIA), and cerebral infarction without residual deficits; Z91.041 Radiographic dye allergy status; Z88.5 Allergy status to narcotic agent; Z88.0 Allergy status to penicillin; Z91.018 Allergy to other foods; Z79.899 Other long term (current) drug therapy
CPT/HCPCS: 96372; 99283; A9270; J1170; J3230

== ENCOUNTER 2021-09-16 10:09 | Emergency (ER) | payer MEDICAID ==
[2021-09-16 10:19] VITALS: BP 114/53; PULSE 75
[2021-09-16] MEDS ORDERED: Metoclopramide 10 MG/2 ML SDV IVPUSH ONE (10:37)
[2021-09-16] MEDS ORDERED: Sodium Chloride 0.9% 10 ML Syringe FLUSH PRN (10:37)
[2021-09-16] MEDS ORDERED: HYDROmorphone 1 MG/ML Syringe IVPUSH ONE (10:38)
[2021-09-16] MEDS ORDERED: diphenhydrAMINE 50 MG/ML SDV IVPUSH ONE (10:39)
[2021-09-16] MEDS ORDERED: HYDROmorphone 0.5 MG/0.5 ML Syringe IVPUSH ONE (11:44)
== END 2021-09-16 12:49 | disposition home or self-care (01) ==
LOC: JD.ED 10:09
DX: G43.009 Migraine without aura, not intractable, without status migrainosus (principal); K21.9 Gastro-esophageal reflux disease without esophagitis; E66.9 Obesity, unspecified; Z68.31 Body mass index [BMI] 31.0-31.9, adult; Z86.73 Personal history of transient ischemic attack (TIA), and cerebral infarction without residual deficits; Z88.8 Allergy status to other drugs, medicaments and biological substances; Z88.0 Allergy status to penicillin; Z91.018 Allergy to other foods; Z91.041 Radiographic dye allergy status; Z88.6 Allergy status to analgesic agent; Z91.048 Other nonmedicinal substance allergy status; Z79.899 Other long term (current) drug therapy
CPT/HCPCS: 96374; 96375; 99283; J1170; J1200; J2765; 99285

== ENCOUNTER 2021-09-20 13:23 | Emergency (ER) | payer MEDICAID ==
[2021-09-20] MEDS ORDERED: diphenhydrAMINE 50 MG/ML SDV IM ONE (14:33)
[2021-09-20] MEDS ORDERED: Metoclopramide 10 MG/2 ML SDV IM ONE (14:33)
[2021-09-20] MEDS ORDERED: HYDROmorphone 1 MG/ML Syringe IM ONE (14:33)
[2021-09-20 15:58] VITALS: BP 127/84; PULSE 87
== END 2021-09-20 15:45 | disposition home or self-care (01) ==
LOC: JD.ED 13:23
DX: G43.809 Other migraine, not intractable, without status migrainosus (principal); M06.9 Rheumatoid arthritis, unspecified; M79.7 Fibromyalgia; K21.9 Gastro-esophageal reflux disease without esophagitis; E66.9 Obesity, unspecified; Z68.30 Body mass index [BMI] 30.0-30.9, adult; Z76.5 Malingerer [conscious simulation]; Z86.73 Personal history of transient ischemic attack (TIA), and cerebral infarction without residual deficits; Z88.8 Allergy status to other drugs, medicaments and biological substances; Z91.041 Radiographic dye allergy status; Z88.0 Allergy status to penicillin; Z88.5 Allergy status to narcotic agent; Z91.018 Allergy to other foods; Z79.899 Other long term (current) drug therapy
CPT/HCPCS: 96372; 99283; J1170; J1200; J2765; 99284

== ENCOUNTER 2021-09-29 07:56 | Emergency (ER) | payer MEDICAID ==
[2021-09-29] MEDS ORDERED: diphenhydrAMINE 50 MG/ML SDV IVPUSH ONE (08:38)
[2021-09-29] MEDS ORDERED: Prochlorperazine 10 MG/2 ML SDV IVPUSH ONE (08:38)
[2021-09-29] MEDS ORDERED: Sodium Chloride 0.9% 1,000 ML IV ONE (08:40)
[2021-09-29 15:30] VITALS: BP 122/68; PULSE 69
== END 2021-09-29 10:59 | disposition home or self-care (01) ==
LOC: JD.ED 07:56
DX: G43.809 Other migraine, not intractable, without status migrainosus (principal); K21.9 Gastro-esophageal reflux disease without esophagitis; E66.9 Obesity, unspecified; Z88.8 Allergy status to other drugs, medicaments and biological substances; Z88.0 Allergy status to penicillin; Z88.5 Allergy status to narcotic agent; Z91.041 Radiographic dye allergy status; Z88.6 Allergy status to analgesic agent; Z91.09 Other allergy status, other than to drugs and biological substances; Z79.899 Other long term (current) drug therapy; Z68.33 Body mass index [BMI] 33.0-33.9, adult
CPT/HCPCS: 70450; 96374; 96375; 99284; J0780; J1200; J7030; 99285

== ENCOUNTER 2021-10-04 17:21 | Emergency (ER) | payer MEDICAID ==
[2021-10-04 17:35] VITALS: BP 166/88; PULSE 89
[2021-10-04] MEDS ORDERED: Ondansetron 4 MG/2 ML SDV IVPUSH ONE (18:24)
[2021-10-04] MEDS ORDERED: Haloperidol Lactate 5 MG/ML SDV IM ONE (18:24)
[2021-10-04] MEDS ORDERED: Benztropine 1 MG Tab PO STA (18:24)
[2021-10-04] MEDS ORDERED: Sodium Chloride 0.9% 1,000 ML IV ONE (18:24)
== END 2021-10-04 19:46 | disposition home or self-care (01) ==
LOC: JD.ED 17:21
DX: R51.9 Headache, unspecified (principal); K21.9 Gastro-esophageal reflux disease without esophagitis; M19.90 Unspecified osteoarthritis, unspecified site; E66.9 Obesity, unspecified; Z68.37 Body mass index [BMI] 37.0-37.9, adult; Z91.041 Radiographic dye allergy status; Z88.0 Allergy status to penicillin; Z88.5 Allergy status to narcotic agent; Z91.018 Allergy to other foods; Z79.899 Other long term (current) drug therapy; Z86.73 Personal history of transient ischemic attack (TIA), and cerebral infarction without residual deficits; Z87.891 Personal history of nicotine dependence
CPT/HCPCS: 96372; 96374; 99283; A9270; J1630; J2405; J7030

== ENCOUNTER 2021-10-06 14:42 | Emergency (ER) | payer MEDICAID ==
[2021-10-06] MEDS ORDERED: Sodium Chloride 0.9% 1,000 ML IV STA (15:22)
[2021-10-06] MEDS ORDERED: Ondansetron 4 MG/2 ML SDV IVPUSH ONE (15:22)
[2021-10-06] MEDS ORDERED: Haloperidol Lactate 5 MG/ML SDV IM ONE (15:23)
[2021-10-06] MEDS ORDERED: Benztropine 1 MG Tab PO ONE (15:23)
[2021-10-06] MEDS ORDERED: Acetaminophen 325 MG Tab PO ONE ×2 (16:48→16:51)
[2021-10-06] MEDS ORDERED: Ibuprofen 600 MG Tab PO ONE (16:51)
[2021-10-06] MEDS ORDERED: diphenhydrAMINE 50 MG/ML SDV IVPUSH ONE (17:36)
[2021-10-06 18:38] VITALS: BP 133/72; PULSE 88
== END 2021-10-06 18:38 | disposition home or self-care (01) ==
LOC: JD.ED 14:42
DX: R51.9 Headache, unspecified (principal); K21.9 Gastro-esophageal reflux disease without esophagitis; M19.90 Unspecified osteoarthritis, unspecified site; E66.9 Obesity, unspecified; Z68.30 Body mass index [BMI] 30.0-30.9, adult; Z91.041 Radiographic dye allergy status; Z86.73 Personal history of transient ischemic attack (TIA), and cerebral infarction without residual deficits; Z88.6 Allergy status to analgesic agent; Z88.0 Allergy status to penicillin; Z91.018 Allergy to other foods; Z88.5 Allergy status to narcotic agent; Z79.899 Other long term (current) drug therapy
CPT/HCPCS: 96372; 96374; 96375; 99283; A9270; J1200; J1630; J2405; J7030; 99284

== ENCOUNTER 2021-10-08 09:49 | Emergency (ER) | payer MEDICAID ==
[2021-10-08 10:07] VITALS: BP 152/92; PULSE 79
[2021-10-08] MEDS ORDERED: Sodium Chloride 0.9% 10 ML Syringe FLUSH PRN (10:22)
[2021-10-08] MEDS ORDERED: diphenhydrAMINE 50 MG/ML SDV IVPUSH ONE (10:22)
[2021-10-08] MEDS ORDERED: Ondansetron 4 MG/2 ML SDV IVPUSH ONE (10:22)
[2021-10-08] MEDS ORDERED: Benztropine 1 MG Tab PO ONE (10:24)
[2021-10-08] MEDS ORDERED: Sodium Chloride 0.9% 1,000 ML IV SCH (10:30)
[2021-10-08] MEDS ORDERED: Acetaminophen 325 MG Tab PO ONE (11:09)
[2021-10-08] MEDS ORDERED: Haloperidol Lactate 5 MG/ML SDV IVPUSH ONE (11:09)
== END 2021-10-08 11:53 | disposition home or self-care (01) ==
LOC: JD.ED 09:49
DX: G43.809 Other migraine, not intractable, without status migrainosus (principal); K21.9 Gastro-esophageal reflux disease without esophagitis; E66.9 Obesity, unspecified; Z68.32 Body mass index [BMI] 32.0-32.9, adult; Z79.899 Other long term (current) drug therapy; Z88.8 Allergy status to other drugs, medicaments and biological substances
CPT/HCPCS: 96374; 96375; 99283; A9270; J1200; J1630; J2405; J7030; J3490

== ENCOUNTER 2021-10-14 14:43 | Emergency (ER) | payer MEDICAID ==
[2021-10-14 15:29] VITALS: BP 146/101; PULSE 105
[2021-10-14] MEDS ORDERED: predniSONE 20 MG Tab PO ONE (15:46)
[2021-10-14] MEDS ORDERED: Acetaminophen 325 MG Tab PO ONE (15:46)
[2021-10-14] MEDS ORDERED: predniSONE 20 MG Tab ONE (16:05)
== END 2021-10-14 16:37 | disposition home or self-care (01) ==
LOC: JD.ED 14:43
DX: M79.7 Fibromyalgia (principal); G89.4 Chronic pain syndrome; K21.9 Gastro-esophageal reflux disease without esophagitis; E66.9 Obesity, unspecified; Z68.30 Body mass index [BMI] 30.0-30.9, adult; Z86.73 Personal history of transient ischemic attack (TIA), and cerebral infarction without residual deficits; Z88.0 Allergy status to penicillin; Z91.041 Radiographic dye allergy status; Z88.6 Allergy status to analgesic agent; Z88.5 Allergy status to narcotic agent; Z79.899 Other long term (current) drug therapy; Z76.5 Malingerer [conscious simulation]
CPT/HCPCS: 99283; A9270; J7512

== ENCOUNTER 2021-10-21 11:08 | Emergency (ER) | payer MEDICAID ==
[2021-10-21 14:13] VITALS: BP 132/88; PULSE 56
== END 2021-10-21 14:13 | disposition home or self-care (01) ==
LOC: JD.ED 11:08
DX: M25.511 Pain in right shoulder (principal); M25.531 Pain in right wrist; K21.9 Gastro-esophageal reflux disease without esophagitis; M19.90 Unspecified osteoarthritis, unspecified site; E66.9 Obesity, unspecified; Z68.33 Body mass index [BMI] 33.0-33.9, adult; Z86.73 Personal history of transient ischemic attack (TIA), and cerebral infarction without residual deficits; Z91.041 Radiographic dye allergy status; Z88.0 Allergy status to penicillin; Z88.6 Allergy status to analgesic agent; Z91.018 Allergy to other foods; Z88.5 Allergy status to narcotic agent; Z91.09 Other allergy status, other than to drugs and biological substances
CPT/HCPCS: 73030-26-RT; 73030-RT; 73110-26-RT; 73110-RT; 99283

== ENCOUNTER 2021-11-01 10:50 | Emergency (ER) | payer MEDICAID ==
[2021-11-01] MEDS ORDERED: Sodium Chloride 0.9% 10 ML Syringe FLUSH PRN (11:30)
[2021-11-01] MEDS ORDERED: Ketorolac 30 MG/ML SDV IM ONE (11:30)
[2021-11-01 12:53] VITALS: BP 132/88; PULSE 86
== END 2021-11-01 12:53 | disposition home or self-care (01) ==
LOC: JD.ED 10:50
DX: R07.9 Chest pain, unspecified (principal); K21.9 Gastro-esophageal reflux disease without esophagitis; J45.909 Unspecified asthma, uncomplicated; M19.90 Unspecified osteoarthritis, unspecified site; E66.9 Obesity, unspecified; Z68.33 Body mass index [BMI] 33.0-33.9, adult; Z86.73 Personal history of transient ischemic attack (TIA), and cerebral infarction without residual deficits; Z91.041 Radiographic dye allergy status; Z88.0 Allergy status to penicillin; Z91.018 Allergy to other foods; Z88.5 Allergy status to narcotic agent; Z88.6 Allergy status to analgesic agent; Z91.09 Other allergy status, other than to drugs and biological substances; Z79.899 Other long term (current) drug therapy
CPT/HCPCS: 36415; 71045; 80053; 83735; 83880; 84484; 85025; 85610; 85730; 93005; 96372; 99285; J1885; J3490; 93010; 99284

== ENCOUNTER 2021-11-05 19:14 | Emergency (ER) | payer MEDICAID ==
[2021-11-05 19:41] VITALS: BP 137/85; PULSE 109
== END 2021-11-05 20:29 ==
LOC: JD.ED 19:14
DX: Z53.21 Procedure and treatment not carried out due to patient leaving prior to being seen by health care provider (principal)

== ENCOUNTER 2021-11-06 13:06 | Emergency (ER) | payer MEDICAID ==
[2021-11-06 13:20] VITALS: BP 160/95; PULSE 97
[2021-11-06] MEDS ORDERED: HYDROmorphone 1 MG/ML Syringe IM ONE (13:51)
== END 2021-11-06 14:15 | disposition home or self-care (01) ==
LOC: JD.ED 13:06
DX: M06.9 Rheumatoid arthritis, unspecified (principal); M25.512 Pain in left shoulder; K21.9 Gastro-esophageal reflux disease without esophagitis; E66.9 Obesity, unspecified; Z68.33 Body mass index [BMI] 33.0-33.9, adult; M19.90 Unspecified osteoarthritis, unspecified site; Z91.041 Radiographic dye allergy status; Z88.0 Allergy status to penicillin; Z88.5 Allergy status to narcotic agent; Z88.6 Allergy status to analgesic agent; Z79.899 Other long term (current) drug therapy
CPT/HCPCS: 96372; 99283; J1170

== ENCOUNTER 2021-12-01 13:35 | Emergency (ER) | payer MEDICAID ==
[2021-12-01 14:25] VITALS: BP 137/95; PULSE 92
[2021-12-01] MEDS ORDERED: Ondansetron 4 MG/2 ML SDV IM ONE (15:18)
[2021-12-01] MEDS ORDERED: Benztropine 1 MG Tab PO ONE (15:18)
[2021-12-01] MEDS ORDERED: Haloperidol Lactate 5 MG/ML SDV IM ONE (15:18)
== END 2021-12-01 17:40 | disposition home or self-care (01) ==
LOC: JD.ED 13:35
DX: G43.109 Migraine with aura, not intractable, without status migrainosus (principal); J45.909 Unspecified asthma, uncomplicated; K21.9 Gastro-esophageal reflux disease without esophagitis; Z86.73 Personal history of transient ischemic attack (TIA), and cerebral infarction without residual deficits; E66.9 Obesity, unspecified; Z68.33 Body mass index [BMI] 33.0-33.9, adult; Z90.710 Acquired absence of both cervix and uterus; Z79.899 Other long term (current) drug therapy; Z91.041 Radiographic dye allergy status; Z88.1 Allergy status to other antibiotic agents; Z88.0 Allergy status to penicillin; Z88.5 Allergy status to narcotic agent; Z91.048 Other nonmedicinal substance allergy status; Z91.018 Allergy to other foods
CPT/HCPCS: 96372; 99283; A9270; J1630; J2405

== ENCOUNTER 2021-12-23 13:58 | Emergency (ER) | payer MEDICAID ==
[2021-12-23 14:18] VITALS: BP 150/88; PULSE 101
[2021-12-23] MEDS ORDERED: Acetaminophen 325 MG Tab PO ONE (14:48)
[2021-12-23] MEDS ORDERED: Orphenadrine 100 MG Tab.ER PO ONE (14:52)
== END 2021-12-23 15:28 | disposition home or self-care (01) ==
LOC: JD.ED 13:58
DX: M54.2 Cervicalgia (principal); E66.9 Obesity, unspecified; Z68.33 Body mass index [BMI] 33.0-33.9, adult; Z88.0 Allergy status to penicillin; Z91.018 Allergy to other foods; Z88.6 Allergy status to analgesic agent; Z91.041 Radiographic dye allergy status; Z88.5 Allergy status to narcotic agent; Z79.899 Other long term (current) drug therapy; Z87.891 Personal history of nicotine dependence
CPT/HCPCS: 72040; 73090; 99283; A9270

== ENCOUNTER 2021-12-26 13:07 | Emergency (ER) | payer MEDICAID ==
[2021-12-26 13:47] VITALS: BP 156/101; PULSE 97
[2021-12-26] MEDS ORDERED: Prochlorperazine 10 MG/2 ML SDV IM ONE (14:45)
[2021-12-26] MEDS ORDERED: diphenhydrAMINE 50 MG/ML SDV IM ONE (14:45)
== END 2021-12-26 15:45 | disposition home or self-care (01) ==
LOC: JD.ED 13:07
DX: M06.9 Rheumatoid arthritis, unspecified (principal); M79.7 Fibromyalgia; K21.9 Gastro-esophageal reflux disease without esophagitis; M19.90 Unspecified osteoarthritis, unspecified site; E66.9 Obesity, unspecified; Z86.73 Personal history of transient ischemic attack (TIA), and cerebral infarction without residual deficits; Z88.0 Allergy status to penicillin; Z91.041 Radiographic dye allergy status; Z68.31 Body mass index [BMI] 31.0-31.9, adult; Z91.018 Allergy to other foods; Z88.5 Allergy status to narcotic agent; Z91.048 Other nonmedicinal substance allergy status; Z88.6 Allergy status to analgesic agent; Z79.899 Other long term (current) drug therapy
CPT/HCPCS: 96372; 99283; J0780; J1200

== ENCOUNTER 2021-12-29 13:32 | Emergency (ER) | payer MEDICAID ==
[2021-12-29 16:47] VITALS: BP 146/110; PULSE 80
[2021-12-29] MEDS ORDERED: Ketorolac 60 MG/2 ML SDV IM ONE (16:58)
[2021-12-29] MEDS ORDERED: Cyclobenzaprine 10 MG Tab PO ONE (16:58)
== END 2021-12-29 17:32 | disposition home or self-care (01) ==
LOC: JD.ED 13:32
DX: M54.50 Low back pain, unspecified (principal); K21.9 Gastro-esophageal reflux disease without esophagitis; E66.9 Obesity, unspecified; Z68.30 Body mass index [BMI] 30.0-30.9, adult; Z86.73 Personal history of transient ischemic attack (TIA), and cerebral infarction without residual deficits; Z91.041 Radiographic dye allergy status; Z88.0 Allergy status to penicillin; Z91.018 Allergy to other foods; Z88.5 Allergy status to narcotic agent; Z79.899 Other long term (current) drug therapy
CPT/HCPCS: 96372; 99283; A9270; J1885

== ENCOUNTER 2022-01-01 21:35 | Emergency (ER) | payer MEDICAID ==
[2022-01-01 22:03] VITALS: BP 143/102; PULSE 103
[2022-01-01] MEDS ORDERED: HYDROmorphone 1 MG/ML Syringe IM ONE (22:26)
== END 2022-01-01 22:45 | disposition home or self-care (01) ==
LOC: JD.ED 21:35
DX: M54.50 Low back pain, unspecified (principal); M06.9 Rheumatoid arthritis, unspecified; M79.7 Fibromyalgia; E66.9 Obesity, unspecified; Z88.0 Allergy status to penicillin; Z91.041 Radiographic dye allergy status; Z88.5 Allergy status to narcotic agent; Z91.048 Other nonmedicinal substance allergy status; Z79.899 Other long term (current) drug therapy; Z86.73 Personal history of transient ischemic attack (TIA), and cerebral infarction without residual deficits; Z68.32 Body mass index [BMI] 32.0-32.9, adult
CPT/HCPCS: 96372; 99283; J1170

== ENCOUNTER 2022-01-20 19:00 | Emergency (ER) | payer MEDICAID ==
[2022-01-20 19:49] VITALS: BP 129/52; PULSE 101
[2022-01-20] MEDS ORDERED: Ketorolac 30 MG/ML SDV IM ONE (20:00)
== END 2022-01-20 20:52 | disposition home or self-care (01) ==
LOC: JD.ED 19:00
DX: M54.50 Low back pain, unspecified (principal); J45.909 Unspecified asthma, uncomplicated; K21.9 Gastro-esophageal reflux disease without esophagitis; E66.9 Obesity, unspecified; Z68.33 Body mass index [BMI] 33.0-33.9, adult; Z91.041 Radiographic dye allergy status; Z88.0 Allergy status to penicillin; Z91.018 Allergy to other foods; Z88.5 Allergy status to narcotic agent; Z88.8 Allergy status to other drugs, medicaments and biological substances; Z91.048 Other nonmedicinal substance allergy status; Z79.899 Other long term (current) drug therapy; Z86.73 Personal history of transient ischemic attack (TIA), and cerebral infarction without residual deficits; Z87.891 Personal history of nicotine dependence; Z90.710 Acquired absence of both cervix and uterus; W19.XXXA Unspecified fall, initial encounter
CPT/HCPCS: 96372; 99283; J1885

== ENCOUNTER 2022-01-24 17:33 | Emergency (ER) | payer MEDICAID ==
[2022-01-24 18:21] VITALS: BP 159/98; PULSE 95
[2022-01-24] MEDS ORDERED: Haloperidol Lactate 5 MG/ML SDV IM ONE (18:22)
[2022-01-24] MEDS ORDERED: Ondansetron 4 MG Tab.DIS PO ONE (18:22)
[2022-01-24] MEDS ORDERED: Benztropine 1 MG Tab PO ONE (18:23)
[2022-01-24] MEDS ORDERED: Metoclopramide 10 MG/2 ML SDV IM ONE (18:33)
[2022-01-24] MEDS ORDERED: Ketorolac 60 MG/2 ML SDV IM ONE (18:33)
[2022-01-24] MEDS ORDERED: diphenhydrAMINE 50 MG/ML SDV IM ONE (18:33)
[2022-01-24] MEDS ORDERED: Acetaminophen/Butalbital/Caffeine 325-50-40 MG Tab PO ONE (20:08)
== END 2022-01-24 21:10 | disposition home or self-care (01) ==
LOC: JD.ED 17:33
DX: G43.109 Migraine with aura, not intractable, without status migrainosus (principal); J45.909 Unspecified asthma, uncomplicated; K21.9 Gastro-esophageal reflux disease without esophagitis; E66.9 Obesity, unspecified; Z68.33 Body mass index [BMI] 33.0-33.9, adult; Z91.041 Radiographic dye allergy status; Z88.0 Allergy status to penicillin; Z91.018 Allergy to other foods; Z88.5 Allergy status to narcotic agent; Z91.048 Other nonmedicinal substance allergy status; Z88.8 Allergy status to other drugs, medicaments and biological substances; Z79.899 Other long term (current) drug therapy; Z90.710 Acquired absence of both cervix and uterus; Z87.891 Personal history of nicotine dependence
CPT/HCPCS: 96372; 99283; A9270; J1200; J1885; J2765

== ENCOUNTER 2022-02-13 13:32 | Emergency (ER) | payer MEDICAID ==
[2022-02-13 13:46] VITALS: BP 138/82; PULSE 102
[2022-02-13] MEDS ORDERED: Ketorolac 60 MG/2 ML SDV IM ONE (14:20)
[2022-02-13] MEDS ORDERED: diphenhydrAMINE 50 MG/ML SDV IM ONE (14:20)
== END 2022-02-13 14:47 | disposition home or self-care (01) ==
LOC: SUPCPDRO 13:32 → JD.ED 13:32
DX: M25.561 Pain in right knee (principal); M25.562 Pain in left knee; E66.9 Obesity, unspecified; Z68.34 Body mass index [BMI] 34.0-34.9, adult; Z86.73 Personal history of transient ischemic attack (TIA), and cerebral infarction without residual deficits; Z91.041 Radiographic dye allergy status; Z88.5 Allergy status to narcotic agent; Z88.0 Allergy status to penicillin; Z88.8 Allergy status to other drugs, medicaments and biological substances; Z79.899 Other long term (current) drug therapy; Z87.891 Personal history of nicotine dependence
CPT/HCPCS: 96372; 99283; J1200; J1885

== ENCOUNTER 2022-02-14 14:58 | Emergency (ER) | payer MEDICAID ==
[2022-02-14 15:50] VITALS: BP 154/93; PULSE 100
[2022-02-14] MEDS ORDERED: diphenhydrAMINE 50 MG Cap PO ONE (16:09)
[2022-02-14] MEDS ORDERED: Ketorolac 60 MG/2 ML SDV IM ONE (16:09)
[2022-02-14] MEDS ORDERED: diphenhydrAMINE 25 MG Cap PO ONE (16:19)
== END 2022-02-14 17:59 | disposition home or self-care (01) ==
LOC: JD.ED 14:58
DX: M25.561 Pain in right knee (principal); M25.562 Pain in left knee; K21.9 Gastro-esophageal reflux disease without esophagitis; E66.9 Obesity, unspecified; Z68.34 Body mass index [BMI] 34.0-34.9, adult; Z86.73 Personal history of transient ischemic attack (TIA), and cerebral infarction without residual deficits; Z91.041 Radiographic dye allergy status; Z88.0 Allergy status to penicillin; Z91.018 Allergy to other foods; Z88.5 Allergy status to narcotic agent; Z88.8 Allergy status to other drugs, medicaments and biological substances; Z79.899 Other long term (current) drug therapy
CPT/HCPCS: 96372; 99283; A9270; J1885

== ENCOUNTER 2022-02-17 09:27 | Emergency (ER) | payer MEDICAID ==
[2022-02-17 10:03] VITALS: BP 128/80; PULSE 77
[2022-02-17] MEDS ORDERED: Metoclopramide 10 MG/2 ML SDV IVPUSH ONE (10:15)
[2022-02-17] MEDS ORDERED: HYDROmorphone 1 MG/ML Syringe IVPUSH ONE (10:15)
[2022-02-17] MEDS ORDERED: diphenhydrAMINE 50 MG/ML SDV IVPUSH ONE (10:15)
[2022-02-17] MEDS ORDERED: Dextrose 5%-0.9% NaCl 1,000 ML IV SCH (10:15)
== END 2022-02-17 12:09 | disposition home or self-care (01) ==
LOC: JD.ED 09:27
DX: G43.109 Migraine with aura, not intractable, without status migrainosus (principal); J45.909 Unspecified asthma, uncomplicated; E66.9 Obesity, unspecified; Z68.34 Body mass index [BMI] 34.0-34.9, adult; Z91.041 Radiographic dye allergy status; Z88.0 Allergy status to penicillin; Z91.018 Allergy to other foods; Z88.5 Allergy status to narcotic agent; Z88.8 Allergy status to other drugs, medicaments and biological substances; Z79.899 Other long term (current) drug therapy
CPT/HCPCS: 96374; 96375; 99283; J1170; J1200; J2765; J7042

== ENCOUNTER 2022-03-13 13:30 | Emergency (ER) | payer MEDICAID ==
[2022-03-13] MEDS ORDERED: HYDROmorphone 1 MG/ML Syringe IM ONE (14:47)
[2022-03-13 15:38] VITALS: BP 131/85; PULSE 91
== END 2022-03-13 15:30 | disposition home or self-care (01) ==
LOC: JD.ED 13:30
DX: M79.7 Fibromyalgia (principal); M06.9 Rheumatoid arthritis, unspecified; E66.9 Obesity, unspecified; Z88.0 Allergy status to penicillin; Z91.041 Radiographic dye allergy status; Z91.018 Allergy to other foods; Z88.5 Allergy status to narcotic agent; Z79.899 Other long term (current) drug therapy; Z87.891 Personal history of nicotine dependence; Z86.73 Personal history of transient ischemic attack (TIA), and cerebral infarction without residual deficits; Z68.32 Body mass index [BMI] 32.0-32.9, adult
CPT/HCPCS: 96372; 99283; J1170

== ENCOUNTER 2022-03-14 14:24 | Emergency (ER) | payer MEDICAID ==
[2022-03-14 14:37] VITALS: BP 114/68; PULSE 108
[2022-03-14] MEDS ORDERED: diphenhydrAMINE 50 MG/ML SDV IM STA (16:06)
[2022-03-14] MEDS ORDERED: Ketorolac 30 MG/ML SDV IM ONE (16:07)
== END 2022-03-14 17:00 | disposition home or self-care (01) ==
LOC: JD.ED 14:24
DX: M79.7 Fibromyalgia (principal); J45.909 Unspecified asthma, uncomplicated; K21.9 Gastro-esophageal reflux disease without esophagitis; E66.9 Obesity, unspecified; Z68.33 Body mass index [BMI] 33.0-33.9, adult; Z91.041 Radiographic dye allergy status; Z88.0 Allergy status to penicillin; Z91.018 Allergy to other foods; Z88.5 Allergy status to narcotic agent; Z91.048 Other nonmedicinal substance allergy status; Z88.8 Allergy status to other drugs, medicaments and biological substances; Z79.899 Other long term (current) drug therapy; Z87.891 Personal history of nicotine dependence; Z76.5 Malingerer [conscious simulation]
CPT/HCPCS: 96372; 99283; J1200; J1885

== ENCOUNTER 2022-04-03 10:54 | Emergency (ER) | payer MEDICAID ==
[2022-04-03 11:32] VITALS: BP 134/92; PULSE 103
[2022-04-03] MEDS ORDERED: Ketorolac 30 MG/ML SDV IM ONE (12:04)
[2022-04-03] MEDS ORDERED: Ondansetron 4 MG Tab.DIS PO ONE (12:04)
[2022-04-03] MEDS ORDERED: diphenhydrAMINE 50 MG/ML SDV IM ONE (12:04)
[2022-04-03] MEDS ORDERED: HYDROmorphone 1 MG/ML Syringe IM ONE (13:25)
== END 2022-04-03 13:30 | disposition home or self-care (01) ==
LOC: JD.ED 10:54
DX: G43.109 Migraine with aura, not intractable, without status migrainosus (principal); M79.7 Fibromyalgia; J45.909 Unspecified asthma, uncomplicated; K21.9 Gastro-esophageal reflux disease without esophagitis; E66.9 Obesity, unspecified; Z68.33 Body mass index [BMI] 33.0-33.9, adult; Z91.041 Radiographic dye allergy status; Z88.0 Allergy status to penicillin; Z91.018 Allergy to other foods; Z88.8 Allergy status to other drugs, medicaments and biological substances; Z79.899 Other long term (current) drug therapy
CPT/HCPCS: 96372; 99283; A9270; J1170; J1200; J1885

== ENCOUNTER 2022-04-11 16:32 | Emergency (ER) | payer MEDICAID ==
[2022-04-11] MEDS ORDERED: HYDROmorphone 1 MG/ML Syringe ONE (17:21)
[2022-04-11] MEDS ORDERED: Dextrose 5%-0.9% NaCl 1,000 ML ONE (17:21)
[2022-04-11] MEDS ORDERED: diphenhydrAMINE 50 MG/ML SDV ONE (17:21)
[2022-04-11] MEDS ORDERED: Metoclopramide 10 MG/2 ML SDV ONE (17:21)
[2022-04-11] MEDS ORDERED: Dexamethasone 10 MG/ML SDV ONE (17:21)
[2022-04-11] MEDS ORDERED: HYDROmorphone 1 MG/ML Syringe IV ONE (17:26)
[2022-04-11] MEDS ORDERED: Dexamethasone 10 MG/ML SDV IVPUSH ONE (17:26)
[2022-04-11] MEDS ORDERED: diphenhydrAMINE 50 MG/ML SDV IV ONE (17:26)
[2022-04-11] MEDS ORDERED: Metoclopramide 10 MG/2 ML SDV IVPUSH ONE (17:26)
[2022-04-11] MEDS ORDERED: Dextrose 5%-0.9% NaCl 1,000 ML IV ONE (17:26)
[2022-04-18 01:25] VITALS: BP 138/84; PULSE 88
== END 2022-04-11 18:39 | disposition home or self-care (01) ==
LOC: JD.ED 16:32
DX: G44.51 Hemicrania continua (principal)
CPT/HCPCS: 96361; 96374; 96375; 99282; J1100; J1170; J1200; J2765; J7042

== ENCOUNTER 2022-04-25 10:25 | Emergency (ER) | payer MEDICAID ==
[2022-04-25] MEDS ORDERED: predniSONE 10 MG Tab PO ONE (11:18)
[2022-04-25 11:58] VITALS: BP 138/85; PULSE 107
== END 2022-04-25 11:58 | disposition home or self-care (01) ==
LOC: JD.ED 10:25
DX: G89.4 Chronic pain syndrome (principal); J45.909 Unspecified asthma, uncomplicated; E66.9 Obesity, unspecified; Z68.34 Body mass index [BMI] 34.0-34.9, adult; Z91.041 Radiographic dye allergy status; Z88.0 Allergy status to penicillin; Z91.018 Allergy to other foods; Z88.5 Allergy status to narcotic agent; Z91.048 Other nonmedicinal substance allergy status; Z88.8 Allergy status to other drugs, medicaments and biological substances; Z90.710 Acquired absence of both cervix and uterus
CPT/HCPCS: 99283; J7512

== ENCOUNTER 2022-04-27 15:15 | Emergency (ER) | payer MEDICAID ==
[2022-04-27 16:09] VITALS: BP 150/93; PULSE 78
== END 2022-04-27 16:14 | disposition left against medical advice (07) ==
LOC: JD.ED 15:15
DX: Z53.21 Procedure and treatment not carried out due to patient leaving prior to being seen by health care provider (principal)

== ENCOUNTER 2022-04-27 16:56 | Emergency (ER) | payer MEDICAID | END 2022-04-27 20:00 | LOC: JD.ED 16:56 | DX: Z53.21 Procedure and treatment not carried out due to patient leaving prior to being seen by health care provider (principal) ==

== ENCOUNTER 2022-04-28 08:13 | Emergency (ER) | payer MEDICAID ==
[2022-04-28 08:27] VITALS: BP 136/99; PULSE 104
[2022-04-28] MEDS ORDERED: diphenhydrAMINE 50 MG/ML SDV IM ONE (11:18)
[2022-04-28] MEDS ORDERED: Ketorolac 60 MG/2 ML SDV IM ONE (11:18)
== END 2022-04-28 12:26 | disposition home or self-care (01) ==
LOC: JD.ED 08:13
DX: R52 Pain, unspecified (principal); Z76.5 Malingerer [conscious simulation]; E66.9 Obesity, unspecified; Z68.33 Body mass index [BMI] 33.0-33.9, adult; Z91.041 Radiographic dye allergy status; Z88.0 Allergy status to penicillin; Z91.018 Allergy to other foods; Z88.5 Allergy status to narcotic agent; Z91.048 Other nonmedicinal substance allergy status; Z88.8 Allergy status to other drugs, medicaments and biological substances; Z79.899 Other long term (current) drug therapy; Z90.710 Acquired absence of both cervix and uterus
CPT/HCPCS: 96372; 99281; J1200; J1885

== ENCOUNTER 2022-05-04 14:33 | Emergency (ER) | payer MEDICAID ==
[2022-05-04] MEDS ORDERED: Dexamethasone 10 MG/ML SDV IVPUSH ONE (15:10)
[2022-05-04] MEDS ORDERED: Metoclopramide 10 MG/2 ML SDV IVPUSH ONE (15:10)
[2022-05-04] MEDS ORDERED: HYDROmorphone 1 MG/ML Syringe IVPUSH ONE (15:10)
[2022-05-04] MEDS ORDERED: diphenhydrAMINE 50 MG/ML SDV IVPUSH ONE (15:10)
[2022-05-04] MEDS ORDERED: Dextrose 5%-Lactated Ringers 1,000 ML IV SCH (15:15)
[2022-05-04 16:56] VITALS: BP 160/92; PULSE 87
== END 2022-05-04 16:56 | disposition home or self-care (01) ==
LOC: JD.ED 14:33
DX: G43.109 Migraine with aura, not intractable, without status migrainosus (principal); G89.4 Chronic pain syndrome; M19.90 Unspecified osteoarthritis, unspecified site; J45.909 Unspecified asthma, uncomplicated; M79.7 Fibromyalgia; E66.9 Obesity, unspecified; Z91.041 Radiographic dye allergy status; Z88.0 Allergy status to penicillin; Z88.5 Allergy status to narcotic agent; Z91.018 Allergy to other foods; Z88.1 Allergy status to other antibiotic agents; Z79.899 Other long term (current) drug therapy; Z90.710 Acquired absence of both cervix and uterus
CPT/HCPCS: 96361; 96374; 96375; 99283-25; J1100; J1170; J1200; J2765; J7121

== ENCOUNTER 2022-05-20 10:23 | Emergency (ER) | payer MEDICAID ==
[2022-05-20 11:02] VITALS: BP 146/80; PULSE 111
[2022-05-20] MEDS ORDERED: diphenhydrAMINE 50 MG/ML SDV IM ONE (11:23)
[2022-05-20] MEDS ORDERED: HYDROmorphone 1 MG/ML Syringe IM ONE (11:23)
[2022-05-20] MEDS ORDERED: Metoclopramide 10 MG/2 ML SDV IM ONE (11:23)
== END 2022-05-20 11:45 | disposition home or self-care (01) ==
LOC: JD.ED 10:23
DX: R51.9 Headache, unspecified (principal); G89.29 Other chronic pain; K21.9 Gastro-esophageal reflux disease without esophagitis; E66.9 Obesity, unspecified; Z68.35 Body mass index [BMI] 35.0-35.9, adult; Z86.73 Personal history of transient ischemic attack (TIA), and cerebral infarction without residual deficits; Z88.0 Allergy status to penicillin; Z91.018 Allergy to other foods; Z88.8 Allergy status to other drugs, medicaments and biological substances; Z91.041 Radiographic dye allergy status; Z79.899 Other long term (current) drug therapy; W00.0XXA Fall on same level due to ice and snow, initial encounter
CPT/HCPCS: 96372; 99283; J1170; J1200; J2765

== ENCOUNTER 2022-05-21 14:50 | Emergency (ER) | payer MEDICAID ==
[2022-05-21 16:19] VITALS: BP 149/88; PULSE 105
[2022-05-21] MEDS ORDERED: HYDROmorphone 1 MG/ML Syringe IM ONE (17:09)
[2022-05-21] MEDS ORDERED: diphenhydrAMINE 50 MG/ML SDV IM ONE (17:10)
[2022-05-21] MEDS: Metoclopramide 10 MG/2 ML SDV IM ONE ×2 (17:18→17:19)
== END 2022-05-21 18:30 | disposition home or self-care (01) ==
LOC: JD.ED 14:50
DX: G43.909 Migraine, unspecified, not intractable, without status migrainosus (principal); M79.7 Fibromyalgia; J45.909 Unspecified asthma, uncomplicated; K21.9 Gastro-esophageal reflux disease without esophagitis; M19.90 Unspecified osteoarthritis, unspecified site; E66.9 Obesity, unspecified; Z68.34 Body mass index [BMI] 34.0-34.9, adult; Z91.041 Radiographic dye allergy status; Z88.0 Allergy status to penicillin; Z91.018 Allergy to other foods; Z88.5 Allergy status to narcotic agent; Z88.8 Allergy status to other drugs, medicaments and biological substances; Z91.048 Other nonmedicinal substance allergy status; Z79.899 Other long term (current) drug therapy
CPT/HCPCS: 96372; 99283; J1170; J1200; J2765

== ENCOUNTER 2022-05-22 13:22 | Emergency (ER) | payer MEDICAID ==
[2022-05-22] MEDS ORDERED: Metoclopramide 10 MG/2 ML SDV IM ONE (15:03)
[2022-05-22] MEDS ORDERED: HYDROmorphone 1 MG/ML Syringe IM ONE (15:03)
[2022-05-22] MEDS ORDERED: diphenhydrAMINE 50 MG/ML SDV IM ONE ×2 (15:03→15:08)
[2022-05-22 16:52] VITALS: BP 124/63; PULSE 78
== END 2022-05-22 16:45 | disposition home or self-care (01) ==
LOC: JD.ED 13:22
DX: G43.109 Migraine with aura, not intractable, without status migrainosus (principal); J45.909 Unspecified asthma, uncomplicated; K21.9 Gastro-esophageal reflux disease without esophagitis; E66.9 Obesity, unspecified; Z91.041 Radiographic dye allergy status; Z88.0 Allergy status to penicillin; Z91.018 Allergy to other foods; Z88.5 Allergy status to narcotic agent; Z91.048 Other nonmedicinal substance allergy status; Z88.8 Allergy status to other drugs, medicaments and biological substances; Z79.899 Other long term (current) drug therapy
CPT/HCPCS: 96372; 99283; J1170; J1200; J2765

== ENCOUNTER 2022-06-12 14:39 | Emergency (ER) | payer BC ==
[2022-06-12 16:56] VITALS: BP 153/85; PULSE 110
== END 2022-06-12 16:53 | disposition home or self-care (01) ==
LOC: JD.ED 14:39
DX: M54.6 Pain in thoracic spine (principal); J45.909 Unspecified asthma, uncomplicated; E66.9 Obesity, unspecified; Z68.34 Body mass index [BMI] 34.0-34.9, adult; Z91.041 Radiographic dye allergy status; Z88.0 Allergy status to penicillin; Z91.018 Allergy to other foods; Z88.5 Allergy status to narcotic agent; Z88.1 Allergy status to other antibiotic agents; Z79.899 Other long term (current) drug therapy
CPT/HCPCS: 99283

== ENCOUNTER 2022-06-13 17:46 | Emergency (ER) | payer BC | END 2022-06-13 19:48 | disposition home or self-care (01) | LOC: JD.ED 17:46 | DX: Z53.21 Procedure and treatment not carried out due to patient leaving prior to being seen by health care provider (principal) ==

== ENCOUNTER 2022-06-14 10:15 | Emergency (ER) | payer BC ==
[2022-06-14] MEDS ORDERED: Sodium Chloride 0.9% 10 ML Syringe FLUSH PRN (11:12)
[2022-06-14] MEDS ORDERED: Metoclopramide 10 MG/2 ML SDV IVPUSH ONE (11:14)
[2022-06-14] MEDS ORDERED: Sodium Chloride 0.9% 1,000 ML IV ONE (11:14)
[2022-06-14] MEDS ORDERED: HYDROmorphone 1 MG/ML Syringe IVPUSH ONE (11:15)
[2022-06-14] MEDS ORDERED: diphenhydrAMINE 50 MG/ML SDV IVPUSH ONE (11:15)
[2022-06-14 15:10] VITALS: BP 152/96; PULSE 112
== END 2022-06-14 14:20 | disposition home or self-care (01) ==
LOC: JD.ED 10:15
DX: G43.809 Other migraine, not intractable, without status migrainosus (principal); J45.909 Unspecified asthma, uncomplicated; K21.9 Gastro-esophageal reflux disease without esophagitis; M19.90 Unspecified osteoarthritis, unspecified site; E66.9 Obesity, unspecified; Z68.43 Body mass index [BMI] 50.0-59.9, adult; Z91.041 Radiographic dye allergy status; Z88.0 Allergy status to penicillin; Z91.018 Allergy to other foods; Z88.5 Allergy status to narcotic agent; Z91.048 Other nonmedicinal substance allergy status; Z88.8 Allergy status to other drugs, medicaments and biological substances; Z79.899 Other long term (current) drug therapy
CPT/HCPCS: 96361; 96374; 96375; 99283; J1170; J1200; J2765; J3490; J7030

== ENCOUNTER 2022-06-15 14:55 | Emergency (ER) | payer BC | END 2022-06-15 15:31 | disposition left against medical advice (07) | LOC: JD.ED 14:55 | DX: Z53.21 Procedure and treatment not carried out due to patient leaving prior to being seen by health care provider (principal) ==

== ENCOUNTER 2022-06-15 21:29 | Emergency (ER) | payer BC, MEDICAID ==
[2022-06-16] MEDS ORDERED: diphenhydrAMINE 50 MG/ML SDV IVPUSH ONE (01:19)
[2022-06-16] MEDS ORDERED: Prochlorperazine 10 MG/2 ML SDV IVPUSH ONE (01:20)
[2022-06-16] MEDS ORDERED: Sodium Chloride 0.9% 1,000 ML IV ONE (01:20)
[2022-06-16 03:42] VITALS: BP 155/91; PULSE 81
== END 2022-06-16 03:35 | disposition home or self-care (01) ==
LOC: JD.ED 21:29
DX: G43.009 Migraine without aura, not intractable, without status migrainosus (principal); J45.909 Unspecified asthma, uncomplicated; K21.9 Gastro-esophageal reflux disease without esophagitis; E66.9 Obesity, unspecified; Z91.041 Radiographic dye allergy status; Z88.0 Allergy status to penicillin; Z91.018 Allergy to other foods; Z88.5 Allergy status to narcotic agent; Z88.8 Allergy status to other drugs, medicaments and biological substances; Z91.048 Other nonmedicinal substance allergy status; Z79.899 Other long term (current) drug therapy
CPT/HCPCS: 96361; 96374; 96375; 99283; J0780; J1200; J7030

== ENCOUNTER 2022-06-16 11:16 | Emergency (ER) | payer BC, MEDICAID ==
[2022-06-16] MEDS ORDERED: diphenhydrAMINE 50 MG Cap PO ONE (12:42)
[2022-06-16] MEDS ORDERED: Ketorolac 60 MG/2 ML SDV IM ONE (12:42)
[2022-06-16] MEDS ORDERED: Prochlorperazine 10 MG/2 ML SDV IM ONE (12:43)
[2022-06-16 14:23] VITALS: BP 137/86; PULSE 99
== END 2022-06-16 14:23 | disposition home or self-care (01) ==
LOC: JD.ED 11:16
DX: G44.209 Tension-type headache, unspecified, not intractable (principal); J45.909 Unspecified asthma, uncomplicated; K21.9 Gastro-esophageal reflux disease without esophagitis; M19.90 Unspecified osteoarthritis, unspecified site; E66.9 Obesity, unspecified; Z68.35 Body mass index [BMI] 35.0-35.9, adult; Z88.8 Allergy status to other drugs, medicaments and biological substances; Z91.041 Radiographic dye allergy status; Z88.0 Allergy status to penicillin; Z91.018 Allergy to other foods; Z88.5 Allergy status to narcotic agent; Z91.048 Other nonmedicinal substance allergy status; Z79.899 Other long term (current) drug therapy
CPT/HCPCS: 96372; 99283; J0780; J1885; Q0163

== ENCOUNTER 2022-06-17 13:13 | Emergency (ER) | payer MEDICAID ==
[2022-06-17] MEDS ORDERED: Sodium Chloride 0.9% 10 ML Syringe FLUSH PRN (14:35)
[2022-06-17] MEDS ORDERED: Dexamethasone 10 MG/ML SDV IVPUSH ONE (14:35)
[2022-06-17] MEDS ORDERED: Ondansetron 4 MG/2 ML SDV IVPUSH ONE (14:37)
[2022-06-17] MEDS ORDERED: diphenhydrAMINE 50 MG/ML SDV IVPUSH ONE (14:38)
[2022-06-17] MEDS ORDERED: Sodium Chloride 0.9% 1,000 ML IV ONE (15:02)
[2022-06-17] MEDS ORDERED: diphenhydrAMINE 50 MG/ML SDV ONE (17:21)
[2022-06-17] MEDS ORDERED: Ondansetron 4 MG/2 ML SDV ONE (17:21)
[2022-06-17] MEDS ORDERED: Dexamethasone 10 MG/ML SDV ONE (17:22)
[2022-06-17 19:42] VITALS: BP 161/78; PULSE 112
== END 2022-06-17 19:40 | disposition home or self-care (01) ==
LOC: JD.ED 13:13
DX: G43.009 Migraine without aura, not intractable, without status migrainosus (principal); E66.9 Obesity, unspecified; Z68.43 Body mass index [BMI] 50.0-59.9, adult; Z91.041 Radiographic dye allergy status; Z88.0 Allergy status to penicillin; Z91.018 Allergy to other foods; Z88.5 Allergy status to narcotic agent; Z88.1 Allergy status to other antibiotic agents; Z79.899 Other long term (current) drug therapy; Z90.710 Acquired absence of both cervix and uterus
CPT/HCPCS: 93005; 96361; 96374; 96375; 99283; J1100; J1200; J2405; J3490; J7030

== ENCOUNTER 2022-07-03 12:41 | Emergency (ER) | payer MEDICAID ==
[2022-07-03 15:18] VITALS: BP 167/101; PULSE 100
[2022-07-03] MEDS ORDERED: HYDROmorphone 1 MG/ML Syringe IM ONE (15:48)
== END 2022-07-03 16:06 | disposition home or self-care (01) ==
LOC: JD.ED 12:41
DX: M79.7 Fibromyalgia (principal); E66.9 Obesity, unspecified; Z86.73 Personal history of transient ischemic attack (TIA), and cerebral infarction without residual deficits; Z91.041 Radiographic dye allergy status; Z88.0 Allergy status to penicillin; Z88.5 Allergy status to narcotic agent; Z88.8 Allergy status to other drugs, medicaments and biological substances; Z68.34 Body mass index [BMI] 34.0-34.9, adult; W19.XXXA Unspecified fall, initial encounter
CPT/HCPCS: 96372; 99283; J1170

== ENCOUNTER 2022-07-07 11:38 | Emergency (ER) | payer MEDICAID ==
[2022-07-07] MEDS ORDERED: Ondansetron 4 MG/2 ML SDV IVPUSH ONE (12:16)
[2022-07-07] MEDS ORDERED: Sodium Chloride 0.9% 1,000 ML IV ONE (12:16)
[2022-07-07 15:58] VITALS: BP 143/84; PULSE 97
== END 2022-07-07 15:10 | disposition home or self-care (01) ==
LOC: JD.ED 11:38
DX: G44.209 Tension-type headache, unspecified, not intractable (principal); Z76.5 Malingerer [conscious simulation]; F17.210 Nicotine dependence, cigarettes, uncomplicated; K21.9 Gastro-esophageal reflux disease without esophagitis; E66.9 Obesity, unspecified; Z68.30 Body mass index [BMI] 30.0-30.9, adult; Z91.041 Radiographic dye allergy status; Z88.0 Allergy status to penicillin; Z91.018 Allergy to other foods; Z91.09 Other allergy status, other than to drugs and biological substances; Z79.899 Other long term (current) drug therapy
CPT/HCPCS: 96361; 96374; 99283; J2405; J7030

== ENCOUNTER 2022-07-08 16:21 | Emergency (ER) | payer MEDICAID ==
[2022-07-08 20:35] VITALS: BP 151/106; PULSE 103
[2022-07-08] MEDS ORDERED: Prochlorperazine 10 MG/2 ML SDV IVPUSH ONE (21:03)
[2022-07-08] MEDS ORDERED: Haloperidol Lactate 5 MG/ML SDV IM ONE (21:03)
[2022-07-08] MEDS ORDERED: diphenhydrAMINE 50 MG/ML SDV IVPUSH ONE (21:03)
[2022-07-08] MEDS ORDERED: diphenhydrAMINE 50 MG Cap PO ONE (22:02)
[2022-07-08] MEDS ORDERED: Prochlorperazine 5 MG Tab PO STA (22:02)
== END 2022-07-08 23:58 | disposition home or self-care (01) ==
LOC: JD.ED 16:21
DX: G44.209 Tension-type headache, unspecified, not intractable (principal); Z76.5 Malingerer [conscious simulation]; K21.9 Gastro-esophageal reflux disease without esophagitis; E66.9 Obesity, unspecified; Z86.73 Personal history of transient ischemic attack (TIA), and cerebral infarction without residual deficits; Z88.0 Allergy status to penicillin; Z91.018 Allergy to other foods; Z88.5 Allergy status to narcotic agent; Z91.041 Radiographic dye allergy status; Z88.8 Allergy status to other drugs, medicaments and biological substances; Z79.899 Other long term (current) drug therapy; Z87.891 Personal history of nicotine dependence; Z68.34 Body mass index [BMI] 34.0-34.9, adult
CPT/HCPCS: 96372; 99283; J1630; Q0163; Q0164

== ENCOUNTER 2022-07-09 15:23 | Emergency (ER) | payer MEDICAID | END 2022-07-09 19:15 | disposition left against medical advice (07) | LOC: JD.ED 15:23 | DX: Z53.21 Procedure and treatment not carried out due to patient leaving prior to being seen by health care provider (principal) ==

== ENCOUNTER 2022-08-06 13:05 | Emergency (ER) | payer MEDICAID ==
[2022-08-06 13:17] VITALS: BP 124/107; PULSE 125
[2022-08-06] MEDS ORDERED: HYDROmorphone 1 MG/ML Syringe IM ONE (13:32)
[2022-08-06] MEDS ORDERED: Metoclopramide 10 MG/2 ML SDV IM ONE (13:33)
[2022-08-06] MEDS ORDERED: diphenhydrAMINE 50 MG/ML SDV IM ONE (13:33)
== END 2022-08-06 14:58 | disposition home or self-care (01) ==
LOC: JD.ED 13:05
DX: M06.9 Rheumatoid arthritis, unspecified (principal); K21.9 Gastro-esophageal reflux disease without esophagitis; M19.90 Unspecified osteoarthritis, unspecified site; E66.9 Obesity, unspecified; Z68.30 Body mass index [BMI] 30.0-30.9, adult; Z88.0 Allergy status to penicillin; Z91.041 Radiographic dye allergy status; Z91.018 Allergy to other foods; Z88.5 Allergy status to narcotic agent; Z88.8 Allergy status to other drugs, medicaments and biological substances; Z79.899 Other long term (current) drug therapy; W19.XXXA Unspecified fall, initial encounter
CPT/HCPCS: 96372; 99283; J1170; J1200; J2765

== ENCOUNTER 2022-08-09 21:10 | Emergency (ER) | payer MEDICAID ==
[2022-08-09 21:27] VITALS: BP 147/71; PULSE 120
[2022-08-09] MEDS ORDERED: HYDROmorphone 1 MG/ML Syringe IM ONE (21:38)
[2022-08-09] MEDS ORDERED: Clindamycin HCl 150 MG Cap PO ONE (21:43)
[2022-08-09] MEDS ORDERED: Orphenadrine 100 MG Tab.ER PO ONE (22:02)
== END 2022-08-09 22:30 | disposition home or self-care (01) ==
LOC: JD.ED 21:10
DX: G89.18 Other acute postprocedural pain (principal); N64.4 Mastodynia; J45.909 Unspecified asthma, uncomplicated; K21.9 Gastro-esophageal reflux disease without esophagitis; E66.9 Obesity, unspecified; Z87.891 Personal history of nicotine dependence; Z91.041 Radiographic dye allergy status; Z88.0 Allergy status to penicillin; Z91.018 Allergy to other foods; Z88.5 Allergy status to narcotic agent; Z88.8 Allergy status to other drugs, medicaments and biological substances; Z91.048 Other nonmedicinal substance allergy status; Z79.899 Other long term (current) drug therapy; Z41.1 Encounter for cosmetic surgery
CPT/HCPCS: 96372; 99284; A9270; J1170

== ENCOUNTER 2022-08-24 09:19 | Emergency (ER) | payer MEDICAID ==
[2022-08-24 09:27] VITALS: BP 135/60; PULSE 71
[2022-08-24] MEDS ORDERED: Doxycycline Monohydrate 100 MG Cap PO ONE (10:38)
== END 2022-08-24 10:45 | disposition home or self-care (01) ==
LOC: JD.ED 09:19
DX: L03.90 Cellulitis, unspecified (principal); Z91.041 Radiographic dye allergy status; Z88.0 Allergy status to penicillin; Z91.018 Allergy to other foods; Z88.5 Allergy status to narcotic agent; Z88.8 Allergy status to other drugs, medicaments and biological substances; Z79.899 Other long term (current) drug therapy
CPT/HCPCS: 99283

== ENCOUNTER 2022-08-25 09:26 | Emergency (ER) | payer MEDICAID ==
[2022-08-25] MEDS ORDERED: HYDROmorphone 1 MG/ML Syringe IM ONE (10:29)
[2022-08-25] MEDS ORDERED: Metoclopramide 10 MG/2 ML SDV IM ONE (10:30)
[2022-08-25] MEDS ORDERED: diphenhydrAMINE 50 MG/ML SDV IM ONE (10:30)
[2022-08-25 11:07] VITALS: BP 122/64; PULSE 84
== END 2022-08-25 11:10 | disposition home or self-care (01) ==
LOC: JD.ED 09:26
DX: T81.40XA Infection following a procedure, unspecified, initial encounter (principal); E66.9 Obesity, unspecified; Z91.041 Radiographic dye allergy status; Z88.0 Allergy status to penicillin; Z91.018 Allergy to other foods; Z88.5 Allergy status to narcotic agent; Z88.8 Allergy status to other drugs, medicaments and biological substances; Z79.899 Other long term (current) drug therapy; Z86.73 Personal history of transient ischemic attack (TIA), and cerebral infarction without residual deficits; Z68.31 Body mass index [BMI] 31.0-31.9, adult
CPT/HCPCS: 96372; 99283; J1170; J1200; J2765

== ENCOUNTER 2022-08-29 10:04 | Emergency (ER) | payer MEDICAID ==
[2022-08-29] MEDS ORDERED: HYDROmorphone 1 MG/ML Syringe IM ONE (12:31)
[2022-08-29] MEDS ORDERED: Metoclopramide 10 MG/2 ML SDV IM ONE (12:31)
[2022-08-29] MEDS ORDERED: diphenhydrAMINE 50 MG/ML SDV IM ONE (12:31)
[2022-08-29 13:13] VITALS: BP 130/77; PULSE 88
== END 2022-08-29 13:03 | disposition home or self-care (01) ==
LOC: JD.ED 10:04
DX: G89.18 Other acute postprocedural pain (principal); N64.4 Mastodynia; K21.9 Gastro-esophageal reflux disease without esophagitis; M19.90 Unspecified osteoarthritis, unspecified site; E66.9 Obesity, unspecified; Z68.29 Body mass index [BMI] 29.0-29.9, adult; Z41.1 Encounter for cosmetic surgery; Z91.041 Radiographic dye allergy status; Z88.0 Allergy status to penicillin; Z91.018 Allergy to other foods; Z88.5 Allergy status to narcotic agent; Z91.048 Other nonmedicinal substance allergy status; Z88.8 Allergy status to other drugs, medicaments and biological substances; Z79.899 Other long term (current) drug therapy
CPT/HCPCS: 96372; 99283; J1170; J1200; J2765

== ENCOUNTER 2022-08-31 12:56 | Emergency (ER) | payer MEDICAID ==
[2022-08-31 13:07] VITALS: BP 136/76; PULSE 105
[2022-08-31] MEDS ORDERED: HYDROmorphone 1 MG/ML Syringe IM ONE (13:24)
[2022-08-31] MEDS ORDERED: diphenhydrAMINE 50 MG/ML SDV IM ONE (13:25)
[2022-08-31] MEDS ORDERED: Metoclopramide 10 MG/2 ML SDV IVPUSH ONE (13:25)
== END 2022-08-31 14:56 | disposition home or self-care (01) ==
LOC: JD.ED 12:56
DX: T81.40XA Infection following a procedure, unspecified, initial encounter (principal); E87.6 Hypokalemia; J45.909 Unspecified asthma, uncomplicated; K21.9 Gastro-esophageal reflux disease without esophagitis; E66.9 Obesity, unspecified; Z68.32 Body mass index [BMI] 32.0-32.9, adult; Z79.899 Other long term (current) drug therapy; Z91.041 Radiographic dye allergy status; Z88.0 Allergy status to penicillin; Z91.018 Allergy to other foods; Z88.5 Allergy status to narcotic agent; Z88.8 Allergy status to other drugs, medicaments and biological substances; Z98.82 Breast implant status
CPT/HCPCS: 36415; 80053; 85025; 86140; 96372; 96374; 99283; J1170; J1200; J2765; 99284

== ENCOUNTER 2022-09-02 15:39 | Emergency (ER) | payer MEDICAID ==
[2022-09-02 16:43] VITALS: BP 119/75; PULSE 92
== END 2022-09-02 16:43 | disposition home or self-care (01) ==
LOC: JD.ED 15:39
DX: G89.18 Other acute postprocedural pain (principal); G89.29 Other chronic pain; J45.909 Unspecified asthma, uncomplicated; K21.9 Gastro-esophageal reflux disease without esophagitis; E66.9 Obesity, unspecified; Z68.32 Body mass index [BMI] 32.0-32.9, adult; Z86.73 Personal history of transient ischemic attack (TIA), and cerebral infarction without residual deficits; Z91.041 Radiographic dye allergy status; Z88.0 Allergy status to penicillin; Z91.018 Allergy to other foods; Z88.5 Allergy status to narcotic agent; Z91.048 Other nonmedicinal substance allergy status; Z88.8 Allergy status to other drugs, medicaments and biological substances; Z79.899 Other long term (current) drug therapy
CPT/HCPCS: 99283; 99284

== ENCOUNTER 2022-09-06 13:31 | Emergency (ER) | payer MEDICAID ==
[2022-09-06 13:49] VITALS: PULSE 91
[2022-09-06] MEDS ORDERED: diphenhydrAMINE 50 MG/ML SDV IVPUSH ONE (15:41)
[2022-09-06] MEDS ORDERED: HYDROmorphone 0.5 MG/0.5 ML Syringe IVPUSH ONE (15:41)
[2022-09-06] MEDS ORDERED: Ondansetron 4 MG/2 ML SDV IVPUSH ONE (15:41)
[2022-09-06 17:33] VITALS: BP 132/87
== END 2022-09-06 17:30 | disposition home or self-care (01) ==
LOC: JD.ED 13:31
DX: N64.4 Mastodynia (principal); Z98.82 Breast implant status; J45.909 Unspecified asthma, uncomplicated; K21.9 Gastro-esophageal reflux disease without esophagitis; E66.9 Obesity, unspecified; Z86.73 Personal history of transient ischemic attack (TIA), and cerebral infarction without residual deficits; Z91.041 Radiographic dye allergy status; Z88.0 Allergy status to penicillin; Z91.018 Allergy to other foods; Z88.5 Allergy status to narcotic agent; Z88.8 Allergy status to other drugs, medicaments and biological substances; Z79.01 Long term (current) use of anticoagulants; Z79.899 Other long term (current) drug therapy; Z68.33 Body mass index [BMI] 33.0-33.9, adult
CPT/HCPCS: 36415; 80053; 85025; 86140; 96374; 96375; 99283; J1170; J1200; J2405

== ENCOUNTER 2022-09-24 16:00 | Emergency (ER) | payer MEDICAID ==
[2022-09-24] MEDS ORDERED: diphenhydrAMINE 50 MG Cap PO ONE (16:43)
[2022-09-24] MEDS ORDERED: Ketorolac 30 MG/ML SDV IM ONE (16:44)
[2022-09-24 18:20] VITALS: BP 133/80; PULSE 79
== END 2022-09-24 18:15 | disposition home or self-care (01) ==
LOC: JD.ED 16:00
DX: R07.89 Other chest pain (principal); J45.909 Unspecified asthma, uncomplicated; K21.9 Gastro-esophageal reflux disease without esophagitis; M19.90 Unspecified osteoarthritis, unspecified site; E66.9 Obesity, unspecified; Z68.30 Body mass index [BMI] 30.0-30.9, adult; Z91.041 Radiographic dye allergy status; Z88.8 Allergy status to other drugs, medicaments and biological substances; Z88.5 Allergy status to narcotic agent; Z88.0 Allergy status to penicillin; Z91.018 Allergy to other foods; Z91.048 Other nonmedicinal substance allergy status; Z79.899 Other long term (current) drug therapy
CPT/HCPCS: 96372; 99284; J1885; Q0163; 99283

== ENCOUNTER 2022-09-27 09:39 | Emergency (ER) | payer MEDICAID ==
[2022-09-27 11:19] VITALS: BP 133/78; PULSE 89
== END 2022-09-27 11:19 | disposition home or self-care (01) ==
LOC: JD.ED 09:39
DX: S29.012A Strain of muscle and tendon of back wall of thorax, initial encounter (principal); K21.9 Gastro-esophageal reflux disease without esophagitis; E66.9 Obesity, unspecified; Z68.30 Body mass index [BMI] 30.0-30.9, adult; Z86.73 Personal history of transient ischemic attack (TIA), and cerebral infarction without residual deficits; Z79.899 Other long term (current) drug therapy; Z91.041 Radiographic dye allergy status; Z88.0 Allergy status to penicillin; Z91.018 Allergy to other foods; Z88.5 Allergy status to narcotic agent; W00.0XXA Fall on same level due to ice and snow, initial encounter
CPT/HCPCS: 99283

== ENCOUNTER 2022-09-30 12:52 | Emergency (ER) | payer MEDICAID ==
[2022-09-30 13:20] VITALS: BP 140/84; PULSE 101
[2022-09-30] MEDS ORDERED: Acetaminophen/Butalbital/Caffeine 325-50-40 MG Tab PO STA (15:00)
[2022-09-30] MEDS ORDERED: Ondansetron 4 MG Tab.DIS PO ONE (15:03)
== END 2022-09-30 17:28 | disposition home or self-care (01) ==
LOC: JD.ED 12:52
DX: G44.209 Tension-type headache, unspecified, not intractable (principal); K21.9 Gastro-esophageal reflux disease without esophagitis; E66.9 Obesity, unspecified; Z68.31 Body mass index [BMI] 31.0-31.9, adult; Z87.891 Personal history of nicotine dependence; Z91.041 Radiographic dye allergy status; Z88.0 Allergy status to penicillin; Z91.018 Allergy to other foods; Z88.8 Allergy status to other drugs, medicaments and biological substances; Z88.5 Allergy status to narcotic agent; Z91.048 Other nonmedicinal substance allergy status; Z79.899 Other long term (current) drug therapy
CPT/HCPCS: 99283; A9270; 99284

== ENCOUNTER 2022-10-23 10:45 | Emergency (ER) | payer MEDICAID ==
[2022-10-23 10:56] VITALS: BP 148/85; PULSE 109
[2022-10-23] MEDS ORDERED: HYDROmorphone 1 MG/ML Syringe IM ONE (11:09)
[2022-10-23] MEDS ORDERED: Metoclopramide 10 MG/2 ML SDV IVPUSH ONE (11:09)
[2022-10-23] MEDS ORDERED: diphenhydrAMINE 50 MG/ML SDV IM ONE (11:09)
== END 2022-10-23 12:40 | disposition home or self-care (01) ==
LOC: JD.ED 10:45
DX: G44.209 Tension-type headache, unspecified, not intractable (principal); J45.909 Unspecified asthma, uncomplicated; K21.9 Gastro-esophageal reflux disease without esophagitis; E66.9 Obesity, unspecified; Z68.30 Body mass index [BMI] 30.0-30.9, adult; Z86.73 Personal history of transient ischemic attack (TIA), and cerebral infarction without residual deficits; Z91.041 Radiographic dye allergy status; Z88.0 Allergy status to penicillin; Z91.018 Allergy to other foods; Z88.5 Allergy status to narcotic agent; Z88.8 Allergy status to other drugs, medicaments and biological substances; Z79.899 Other long term (current) drug therapy
CPT/HCPCS: 96372; 96374; 99283; J1170; J1200; J2765

== ENCOUNTER 2022-10-25 09:08 | Emergency (ER) | payer MEDICAID ==
[2022-10-25 09:19] VITALS: BP 144/85; PULSE 104
[2022-10-25] MEDS ORDERED: Metoclopramide 10 MG/2 ML SDV IM ONE (09:42)
[2022-10-25] MEDS ORDERED: HYDROmorphone 1 MG/ML Syringe IM ONE (09:42)
[2022-10-25] MEDS ORDERED: diphenhydrAMINE 50 MG/ML SDV IM ONE (09:43)
== END 2022-10-25 10:00 | disposition home or self-care (01) ==
LOC: JD.ED 09:08
DX: M06.9 Rheumatoid arthritis, unspecified (principal); J45.909 Unspecified asthma, uncomplicated; K21.9 Gastro-esophageal reflux disease without esophagitis; E66.9 Obesity, unspecified; Z91.041 Radiographic dye allergy status; Z88.0 Allergy status to penicillin; Z91.018 Allergy to other foods; Z88.5 Allergy status to narcotic agent; Z88.8 Allergy status to other drugs, medicaments and biological substances; Z79.51 Long term (current) use of inhaled steroids; Z79.899 Other long term (current) drug therapy; Z68.30 Body mass index [BMI] 30.0-30.9, adult
CPT/HCPCS: 96372; 99283; J1170; J1200; J2765

== ENCOUNTER 2022-10-27 11:48 | Emergency (ER) | payer MEDICAID ==
[2022-10-27 12:11] VITALS: BP 138/83; PULSE 111
[2022-10-27] MEDS ORDERED: Acetaminophen/Butalbital/Caffeine 325-50-40 MG Tab PO ONE (12:45)
[2022-10-27] MEDS ORDERED: Metoclopramide 10 MG/2 ML SDV IM ONE (12:45)
== END 2022-10-27 13:10 | disposition home or self-care (01) ==
LOC: JD.ED 11:48
DX: G44.209 Tension-type headache, unspecified, not intractable (principal); R11.2 Nausea with vomiting, unspecified; K21.9 Gastro-esophageal reflux disease without esophagitis; E66.9 Obesity, unspecified; Z68.31 Body mass index [BMI] 31.0-31.9, adult; Z91.041 Radiographic dye allergy status; Z88.0 Allergy status to penicillin; Z91.018 Allergy to other foods; Z88.5 Allergy status to narcotic agent; Z88.8 Allergy status to other drugs, medicaments and biological substances; Z79.899 Other long term (current) drug therapy; Z87.891 Personal history of nicotine dependence; Z86.73 Personal history of transient ischemic attack (TIA), and cerebral infarction without residual deficits
CPT/HCPCS: 96372; 99283; A9270; J2765

== ENCOUNTER 2022-10-30 17:24 | Emergency (ER) | payer MEDICAID ==
[2022-10-30] MEDS ORDERED: diphenhydrAMINE 50 MG/ML SDV IM ONE (17:55)
[2022-10-30] MEDS ORDERED: Metoclopramide 10 MG/2 ML SDV IM ONE (17:55)
[2022-10-30] MEDS ORDERED: Ketorolac 60 MG/2 ML SDV IM ONE (17:55)
[2022-10-30] MEDS ORDERED: tiZANidine 4 MG Tab PO ONE (17:56)
[2022-10-30 19:54] VITALS: BP 122/86; PULSE 98
== END 2022-10-30 19:54 | disposition home or self-care (01) ==
LOC: JD.ED 17:24
DX: G89.29 Other chronic pain (principal); M54.50 Low back pain, unspecified; K21.9 Gastro-esophageal reflux disease without esophagitis; J45.909 Unspecified asthma, uncomplicated; E66.9 Obesity, unspecified; Z68.31 Body mass index [BMI] 31.0-31.9, adult; Z79.899 Other long term (current) drug therapy; Z88.0 Allergy status to penicillin; Z91.041 Radiographic dye allergy status; Z91.018 Allergy to other foods; Z88.5 Allergy status to narcotic agent; Z88.8 Allergy status to other drugs, medicaments and biological substances
CPT/HCPCS: 96372; 99283; A9270; J1200; J1885; J2765

== ENCOUNTER 2022-11-12 15:17 | Emergency (ER) | payer MEDICAID ==
[2022-11-12] MEDS ORDERED: Prochlorperazine 10 MG/2 ML SDV IM ONE (17:06)
[2022-11-12] MEDS ORDERED: diphenhydrAMINE 50 MG/ML SDV IM ONE (17:06)
[2022-11-12] MEDS ORDERED: Naproxen 500 MG Tab PO ONE (17:06)
[2022-11-12 18:26] VITALS: BP 119/70; PULSE 70
== END 2022-11-12 18:26 | disposition home or self-care (01) ==
LOC: JD.ED 15:17
DX: G44.209 Tension-type headache, unspecified, not intractable (principal); J45.909 Unspecified asthma, uncomplicated; K21.9 Gastro-esophageal reflux disease without esophagitis; Z86.73 Personal history of transient ischemic attack (TIA), and cerebral infarction without residual deficits; Z91.041 Radiographic dye allergy status; Z88.0 Allergy status to penicillin; Z91.018 Allergy to other foods; Z88.5 Allergy status to narcotic agent; Z88.8 Allergy status to other drugs, medicaments and biological substances; Z79.899 Other long term (current) drug therapy
CPT/HCPCS: 96372; 99283; A9270; J0780; J1200

== ENCOUNTER 2022-12-04 11:45 | Emergency (ER) | payer MEDICAID ==
[2022-12-04 12:18] VITALS: BP 154/91; PULSE 96
[2022-12-04] MEDS ORDERED: HYDROmorphone 1 MG/ML Syringe IM ONE (12:33)
[2022-12-04] MEDS ORDERED: Ketorolac 30 MG/ML SDV IM ONE (12:33)
[2022-12-04] MEDS ORDERED: Potassium Chloride 20 MEQ Tab.ER PO ONE (12:34)
[2022-12-04] MEDS ORDERED: Ondansetron 4 MG Tab.DIS PO ONE (12:34)
== END 2022-12-04 13:50 | disposition home or self-care (01) ==
LOC: JD.ED 11:45
DX: G44.209 Tension-type headache, unspecified, not intractable (principal); J45.909 Unspecified asthma, uncomplicated; K21.9 Gastro-esophageal reflux disease without esophagitis; E66.9 Obesity, unspecified; Z68.30 Body mass index [BMI] 30.0-30.9, adult; Z91.041 Radiographic dye allergy status; Z88.0 Allergy status to penicillin; Z91.018 Allergy to other foods; Z88.8 Allergy status to other drugs, medicaments and biological substances; Z88.5 Allergy status to narcotic agent; Z79.899 Other long term (current) drug therapy
CPT/HCPCS: 96372; 99283; A9270; J1170; J1885

== ENCOUNTER 2022-12-09 12:03 | Emergency (ER) | payer MEDICAID ==
[2022-12-09] MEDS ORDERED: HYDROmorphone 1 MG/ML Syringe IM ONE (12:46)
[2022-12-09] MEDS ORDERED: diphenhydrAMINE 50 MG/ML SDV IM ONE (12:48)
[2022-12-09 13:49] VITALS: BP 148/88; PULSE 88
== END 2022-12-09 13:42 | disposition home or self-care (01) ==
LOC: JD.ED 12:03
DX: M06.9 Rheumatoid arthritis, unspecified (principal); K21.9 Gastro-esophageal reflux disease without esophagitis; J45.909 Unspecified asthma, uncomplicated; E66.9 Obesity, unspecified; Z68.31 Body mass index [BMI] 31.0-31.9, adult; Z91.018 Allergy to other foods; Z88.5 Allergy status to narcotic agent; Z79.899 Other long term (current) drug therapy
CPT/HCPCS: 96372; 99283; J1170; J1200

== ENCOUNTER 2023-01-01 12:53 | Emergency (ER) | payer MEDICAID ==
[2023-01-01] MEDS ORDERED: HYDROmorphone 1 MG/ML Syringe IM ONE (13:30)
[2023-01-01] MEDS ORDERED: diphenhydrAMINE 50 MG/ML SDV IM ONE (13:36)
[2023-01-01] MEDS ORDERED: Metoclopramide 10 MG/2 ML SDV IM ONE (13:37)
[2023-01-01] MEDS ORDERED: Ketorolac 30 MG/ML SDV IM ONE (14:56)
[2023-01-01 18:22] VITALS: BP 128/91; PULSE 122
== END 2023-01-01 15:50 | disposition home or self-care (01) ==
LOC: JD.ED 12:53
DX: G44.209 Tension-type headache, unspecified, not intractable (principal); M79.7 Fibromyalgia; K21.9 Gastro-esophageal reflux disease without esophagitis; E66.9 Obesity, unspecified; Z68.30 Body mass index [BMI] 30.0-30.9, adult; Z91.041 Radiographic dye allergy status; Z88.0 Allergy status to penicillin; Z91.048 Other nonmedicinal substance allergy status; Z88.5 Allergy status to narcotic agent; Z88.1 Allergy status to other antibiotic agents; Z79.899 Other long term (current) drug therapy; Z90.49 Acquired absence of other specified parts of digestive tract
CPT/HCPCS: 96372; 99283; J1170; J1200; J1885; J2765

== ENCOUNTER 2023-02-06 09:38 | Emergency (ER) | payer MEDICAID ==
[2023-02-06 09:48] VITALS: BP 135/83; PULSE 96
[2023-02-06] MEDS ORDERED: Acetaminophen 325 MG Tab PO ONE (11:02)
[2023-02-06] MEDS ORDERED: Ketorolac 60 MG/2 ML SDV IM ONE (11:02)
== END 2023-02-06 11:31 | disposition home or self-care (01) ==
LOC: JD.ED 09:38
DX: M79.10 Myalgia, unspecified site (principal); J45.909 Unspecified asthma, uncomplicated; K21.9 Gastro-esophageal reflux disease without esophagitis; E66.9 Obesity, unspecified; Z91.041 Radiographic dye allergy status; Z88.0 Allergy status to penicillin; Z91.018 Allergy to other foods; Z88.5 Allergy status to narcotic agent; Z91.09 Other allergy status, other than to drugs and biological substances; Z88.8 Allergy status to other drugs, medicaments and biological substances; Z79.51 Long term (current) use of inhaled steroids; Z79.899 Other long term (current) drug therapy; Z68.31 Body mass index [BMI] 31.0-31.9, adult
CPT/HCPCS: 96372; 99283; A9270; J1885; 99282

== ENCOUNTER 2023-02-10 09:53 | Emergency (ER) | payer MEDICAID ==
[2023-02-10] MEDS ORDERED: HYDROmorphone 1 MG/ML Syringe IM ONE (10:14)
[2023-02-10] MEDS ORDERED: Promethazine 25 MG/ML SDV IM ONE (10:14)
[2023-02-10 10:24] LABS: BASOPHILS ABSOLUTE AUTO 0.04 K/mm3 (0.01-0.08); BASOPHILS PERCENT AUTO 0.5 % (0.1-1.2); EOSINOPHILS PERCENT AUTO 2.4 (0.7-5.8); HEMATOCRIT 36.7 % (34.1-44.9); HEMOGLOBIN 11.8 gm/dl (11.2-15.7); IMMATURE GRAN ABSOLUTE AUTO 0.01 K/mm3 (0.00-0.10); IMMATURE GRAN PERCENT AUTO 0.1 % (<=1.0); LYMPHOCYTES ABSOLUTE AUTO 2.64 K/mm3 (1.18-3.74); LYMPHOCYTES PERCENT AUTO 31.4 % (19.3-51.7); MEAN CORPUSCULAR HEMOGLOBIN 27.3 pg (25.6-32.2); MEAN CORPUSCULAR HGB CONC 32.2 g/dl (32.2-35.5); MEAN CORPUSCULAR VOLUME 84.8 fl (79.4-94.8); MEAN PLATELET VOLUME 8.8 fl (9.4-12.3); MONOCYTES PERCENT AUTO 10.7 % (4.7-12.5); NEUTROPHILS ABSOLUTE AUTO 4.62 K/mm3 (1.56-6.13); NEUTROPHILS PERCENT AUTO 54.9 % (34.0-71.1); PLATELET COUNT,PLT 436 K/mm3 (182-369); RED BLOOD CELL COUNT 4.33 M/mm3 (3.98-5.22); WHITE BLOOD CELL COUNT,WBC 8.41 K/mm3 (3.98-10.04)
[2023-02-10 10:46] LABS: INR 0.99; PROTHROMBIN TIME 10.6 SECONDS (9.7-12.0)
[2023-02-10 10:51] LABS: A/G RATIO 0.6 (1-2); ALBUMIN 2.5 g/dl (3.4-5.0); BILIRUBIN TOTAL 0.1 mg/dL (0.2-1.0); BUN/CREATININE RATIO 15.6 (14-18); CALCIUM 8.8 mg/dL (8.5-10.1); CREATININE 0.9 mg/dL (0.55-1.02); EST CRCL DRUG DOSING (CG) 78.63 mL/min; MAGNESIUM 1.6 mg/dL (1.8-2.4); PROTEIN TOTAL,TP 6.5 g/dl (6.4-8.2)
[2023-02-10] MEDS ORDERED: HYDROmorphone 0.5 MG/0.5 ML Syringe IM ONE (12:08)
[2023-02-10 12:31] VITALS: BP 132/94; PULSE 80
== END 2023-02-10 12:16 | disposition home or self-care (01) ==
LOC: JD.ED 09:53
DX: R07.9 Chest pain, unspecified (principal); R51.9 Headache, unspecified; J45.909 Unspecified asthma, uncomplicated; K21.9 Gastro-esophageal reflux disease without esophagitis; E66.9 Obesity, unspecified; Z68.31 Body mass index [BMI] 31.0-31.9, adult; Z88.0 Allergy status to penicillin; Z88.5 Allergy status to narcotic agent; Z88.6 Allergy status to analgesic agent; Z88.8 Allergy status to other drugs, medicaments and biological substances; Z91.048 Other nonmedicinal substance allergy status; Z91.018 Allergy to other foods
CPT/HCPCS: 36415; 71045; 80053; 83735; 84484; 85025; 85610; 93005; 96372; 99285; J1170; J2550; 93010; 99284

== ENCOUNTER 2023-02-19 10:19 | Emergency (ER) | payer MEDICAID ==
[2023-02-19] MEDS ORDERED: Metoclopramide 10 MG/2 ML SDV IVPUSH STA (10:46)
[2023-02-19] MEDS ORDERED: Haloperidol Lactate 5 MG/ML SDV IM ONE (10:46)
[2023-02-19] MEDS ORDERED: Sodium Chloride 0.9% 1,000 ML IV ONE (10:46)
[2023-02-19 12:14] VITALS: BP 125/89; PULSE 98
== END 2023-02-19 12:11 | disposition home or self-care (01) ==
LOC: JD.ED 10:19
DX: G44.209 Tension-type headache, unspecified, not intractable (principal); Z76.5 Malingerer [conscious simulation]; J45.909 Unspecified asthma, uncomplicated; K21.9 Gastro-esophageal reflux disease without esophagitis; E66.9 Obesity, unspecified; Z91.041 Radiographic dye allergy status; Z88.0 Allergy status to penicillin; Z88.5 Allergy status to narcotic agent; Z88.8 Allergy status to other drugs, medicaments and biological substances; Z79.899 Other long term (current) drug therapy; Z86.73 Personal history of transient ischemic attack (TIA), and cerebral infarction without residual deficits; Z87.891 Personal history of nicotine dependence; Z68.31 Body mass index [BMI] 31.0-31.9, adult; Z91.018 Allergy to other foods
CPT/HCPCS: 70450; 96374; 99284; J2765; J7030

== ENCOUNTER 2023-03-05 17:21 | Emergency (ER) | payer MEDICAID ==
[2023-03-05 19:11] LABS: A/G RATIO 0.6 (1-2); ALBUMIN 3.3 g/dl (3.4-5.0); ANION GAP 13.7 (5-15); BILIRUBIN TOTAL 0.3 mg/dL (0.2-1.0); CALCIUM 9.8 mg/dL (8.5-10.1); EST CRCL DRUG DOSING (CG) 70.76 mL/min; POTASSIUM,K 2.7 mEq/L (3.5-5.1); PROTEIN TOTAL,TP 8.6 g/dl (6.4-8.2)
[2023-03-05 19:18] LABS: BASOPHILS ABSOLUTE AUTO 0.1 K/mm3 (0.0-0.2); BASOPHILS PERCENT AUTO 0.7 % (0.0-1.0); EOSINOPHILS ABSOLUTE AUTO 0.2 K/mm3 (0.0-0.4); EOSINOPHILS PERCENT AUTO 2.2 % (0.0-6.0); HEMATOCRIT 42.1 % (37.0-47.0); HEMOGLOBIN 13.9 gm/dl (12.0-16.0); IMMATURE GRAN ABSOLUTE AUTO 0.03 K/mm3 (0.00-0.05); IMMATURE GRAN PERCENT AUTO 0.3 % (0.0-0.4); LYMPHOCYTES PERCENT AUTO 31.7 % (24.0-44.0); MEAN CORPUSCULAR HEMOGLOBIN 27.1 pg (28.0-32.0); MEAN CORPUSCULAR VOLUME 82.1 fl (83.0-99.0); MEAN PLATELET VOLUME 8.8 fl (9.4-12.3); MONOCYTES ABSOLUTE AUTO 0.9 K/mm3 (0.0-0.8); MONOCYTES PERCENT AUTO 8.9 % (0.0-8.0); NEUTROPHILS ABSOLUTE AUTO 5.4 K/mm3 (1.8-7.7); NEUTROPHILS PERCENT AUTO 56.2 % (41.0-71.0); PLATELET COUNT,PLT 410 K/mm3 (150-400); RED BLOOD CELL COUNT 5.13 M/mm3 (4.10-5.30)
[2023-03-05] MEDS ORDERED: Potassium Chloride 20 MEQ Tab.ER PO ONE (19:44)
[2023-03-05] MEDS ORDERED: diphenhydrAMINE 50 MG/ML SDV IVPUSH ONE (19:44)
[2023-03-05] MEDS ORDERED: Ketorolac 30 MG/ML SDV IVPUSH ONE (19:45)
[2023-03-06 01:05] VITALS: BP 137/83; PULSE 103
== END 2023-03-05 21:10 | disposition home or self-care (01) ==
LOC: JD.ED 17:21
DX: R07.89 Other chest pain (principal); K21.9 Gastro-esophageal reflux disease without esophagitis; J45.909 Unspecified asthma, uncomplicated; E66.9 Obesity, unspecified; Z68.30 Body mass index [BMI] 30.0-30.9, adult; Z88.0 Allergy status to penicillin; Z88.5 Allergy status to narcotic agent; Z91.041 Radiographic dye allergy status; Z91.018 Allergy to other foods; Z88.8 Allergy status to other drugs, medicaments and biological substances; Z79.899 Other long term (current) drug therapy; Z87.891 Personal history of nicotine dependence
CPT/HCPCS: 36415; 71046; 80053; 84484; 85025; 85379; 93005; 96374; 96375; 99285; A9270; J1200; J1885; 93010; 99284

== ENCOUNTER 2023-03-23 12:34 | Emergency (ER) | payer MEDICAID ==
[2023-03-23] MEDS ORDERED: Ketorolac 60 MG/2 ML SDV IM ONE (13:35)
[2023-03-23 15:36] VITALS: BP 121/73; PULSE 80
== END 2023-03-23 15:35 | disposition home or self-care (01) ==
LOC: JD.ED 12:34
DX: M54.2 Cervicalgia (principal); K21.9 Gastro-esophageal reflux disease without esophagitis; J45.909 Unspecified asthma, uncomplicated; E66.9 Obesity, unspecified; Z68.29 Body mass index [BMI] 29.0-29.9, adult; Z88.0 Allergy status to penicillin; Z88.5 Allergy status to narcotic agent; Z88.6 Allergy status to analgesic agent; Z88.8 Allergy status to other drugs, medicaments and biological substances; Z91.041 Radiographic dye allergy status; Z91.018 Allergy to other foods; Z91.048 Other nonmedicinal substance allergy status
CPT/HCPCS: 72125; 72125-26; 99283

== ENCOUNTER 2023-03-25 09:50 | Emergency (ER) | payer MEDICAID ==
[2023-03-25 12:06] VITALS: BP 110/77; PULSE 87
== END 2023-03-25 12:06 | disposition home or self-care (01) ==
LOC: JD.ED 09:50
DX: S60.222A Contusion of left hand, initial encounter (principal); J45.909 Unspecified asthma, uncomplicated; K21.9 Gastro-esophageal reflux disease without esophagitis; Z88.8 Allergy status to other drugs, medicaments and biological substances; Z88.5 Allergy status to narcotic agent; Z91.041 Radiographic dye allergy status; Z88.0 Allergy status to penicillin; Z91.018 Allergy to other foods; Z91.048 Other nonmedicinal substance allergy status; Z79.899 Other long term (current) drug therapy; W23.0XXA Caught, crushed, jammed, or pinched between moving objects, initial encounter; Y92.002 Bathroom of unspecified non-institutional (private) residence as the place of occurrence of the external cause
CPT/HCPCS: 73130-26-LT; 73130-LT; 99282; 99283

== ENCOUNTER 2023-03-26 16:20 | Emergency (ER) | payer MEDICAID ==
[2023-03-26] MEDS ORDERED: HYDROmorphone 1 MG/ML Syringe IM ONE (16:59)
[2023-03-26] MEDS ORDERED: diphenhydrAMINE 50 MG/ML SDV IM ONE (16:59)
[2023-03-26 17:42] VITALS: BP 121/85; PULSE 108
== END 2023-03-26 17:40 | disposition home or self-care (01) ==
LOC: JD.ED 16:20
DX: M79.7 Fibromyalgia (principal); M06.9 Rheumatoid arthritis, unspecified; J45.909 Unspecified asthma, uncomplicated; K21.9 Gastro-esophageal reflux disease without esophagitis; E66.9 Obesity, unspecified; Z79.899 Other long term (current) drug therapy; Z88.5 Allergy status to narcotic agent; Z88.8 Allergy status to other drugs, medicaments and biological substances; Z91.018 Allergy to other foods; Z91.048 Other nonmedicinal substance allergy status; Z88.0 Allergy status to penicillin; Z91.041 Radiographic dye allergy status; Z68.29 Body mass index [BMI] 29.0-29.9, adult
CPT/HCPCS: 96372; 99283; J1170; J1200; 99284

== ENCOUNTER 2023-04-19 15:01 | Emergency (ER) | payer MEDICAID ==
[2023-04-19] MEDS ORDERED: HYDROmorphone 1 MG/ML Syringe IM ONE (16:01)
[2023-04-19] MEDS ORDERED: diphenhydrAMINE 50 MG/ML SDV IM ONE (16:03)
[2023-04-19] MEDS ORDERED: Metoclopramide 10 MG/2 ML SDV IM ONE (16:03)
[2023-04-19 17:06] VITALS: BP 120/71; PULSE 98
== END 2023-04-19 16:30 | disposition home or self-care (01) ==
LOC: JD.ED 15:01
DX: M17.0 Bilateral primary osteoarthritis of knee (principal); M79.7 Fibromyalgia; J45.909 Unspecified asthma, uncomplicated; K21.9 Gastro-esophageal reflux disease without esophagitis; E66.9 Obesity, unspecified; Z68.29 Body mass index [BMI] 29.0-29.9, adult; Z79.899 Other long term (current) drug therapy; Z91.041 Radiographic dye allergy status; Z88.0 Allergy status to penicillin; Z91.018 Allergy to other foods; Z88.5 Allergy status to narcotic agent; Z91.048 Other nonmedicinal substance allergy status
CPT/HCPCS: 96372; 99283; J1170; J1200; J2765

== ENCOUNTER 2023-11-09 10:37 | Emergency (ER) | payer MEDICAID ==
[2023-11-09] MEDS: HYDROmorphone 0.5 MG/0.5 ML Syringe IM ONE (12:02)
[2023-11-09 13:21] VITALS: BP 123/78; PULSE 67
== END 2023-11-09 13:23 | disposition home or self-care (01) ==
LOC: JD.ED 10:37
DX: M25.561 Pain in right knee (principal); J45.909 Unspecified asthma, uncomplicated; K21.9 Gastro-esophageal reflux disease without esophagitis; Z91.041 Radiographic dye allergy status; Z88.0 Allergy status to penicillin; Z91.018 Allergy to other foods; Z88.8 Allergy status to other drugs, medicaments and biological substances; Z88.5 Allergy status to narcotic agent; Z79.51 Long term (current) use of inhaled steroids; Z79.899 Other long term (current) drug therapy; Z90.710 Acquired absence of both cervix and uterus
CPT/HCPCS: 96372; 99283; J1170

== ENCOUNTER 2024-01-08 08:53 | Emergency (ER) | payer MEDICAID ==
[2024-01-08] MEDS: diphenhydrAMINE 50 MG/ML SDV IVPUSH ONE (09:22)
[2024-01-08] MEDS: HYDROmorphone 0.5 MG/0.5 ML Syringe IVPUSH ONE (09:24)
[2024-01-08 14:13] VITALS: BP 128/80; PULSE 100
== END 2024-01-08 11:08 | disposition home or self-care (01) ==
LOC: JD.ED 08:53
DX: S52.572A Other intraarticular fracture of lower end of left radius, initial encounter for closed fracture (principal); S16.1XXA Strain of muscle, fascia and tendon at neck level, initial encounter; S09.90XA Unspecified injury of head, initial encounter; K21.9 Gastro-esophageal reflux disease without esophagitis; E66.9 Obesity, unspecified; Z90.710 Acquired absence of both cervix and uterus; Z68.29 Body mass index [BMI] 29.0-29.9, adult; Z79.899 Other long term (current) drug therapy; Z88.0 Allergy status to penicillin; Z91.018 Allergy to other foods; Z91.041 Radiographic dye allergy status; Z88.8 Allergy status to other drugs, medicaments and biological substances; Z88.6 Allergy status to analgesic agent; Z88.5 Allergy status to narcotic agent; Z91.048 Other nonmedicinal substance allergy status; W01.0XXA Fall on same level from slipping, tripping and stumbling without subsequent striking against object, initial encounter; Y92.039 Unspecified place in apartment as the place of occurrence of the external cause
CPT/HCPCS: 29125; 70450; 72125; 73110; 96374; 96375; 99284; J1170; J1200

== ENCOUNTER 2024-01-09 11:55 | Emergency (ER) | payer MEDICAID ==
[2024-01-09] MEDS: Promethazine 25 MG Tab PO ONE (12:40)
[2024-01-09] MEDS: Ibuprofen 800 MG Tab PO ONE (12:40)
[2024-01-09 13:55] VITALS: BP 144/86; PULSE 99
== END 2024-01-09 13:55 | disposition home or self-care (01) ==
LOC: JD.ED 11:55
DX: G43.909 Migraine, unspecified, not intractable, without status migrainosus (principal); J45.909 Unspecified asthma, uncomplicated; E66.9 Obesity, unspecified; Z90.710 Acquired absence of both cervix and uterus; Z87.891 Personal history of nicotine dependence; Z79.899 Other long term (current) drug therapy; Z91.048 Other nonmedicinal substance allergy status; Z88.8 Allergy status to other drugs, medicaments and biological substances; Z91.018 Allergy to other foods; Z88.0 Allergy status to penicillin; Z68.43 Body mass index [BMI] 50.0-59.9, adult
CPT/HCPCS: 99283; A9270

== ENCOUNTER 2024-01-25 10:52 | Emergency (ER) | payer MEDICAID ==
[2024-01-25 14:05] VITALS: BP 144/92; PULSE 87
== END 2024-01-25 13:05 | disposition home or self-care (01) ==
LOC: JD.ED 10:52
DX: M19.031 Primary osteoarthritis, right wrist (principal); J45.909 Unspecified asthma, uncomplicated; E66.9 Obesity, unspecified; Z88.0 Allergy status to penicillin; Z88.6 Allergy status to analgesic agent; Z88.5 Allergy status to narcotic agent; Z91.041 Radiographic dye allergy status; Z91.048 Other nonmedicinal substance allergy status; Z79.899 Other long term (current) drug therapy; Z90.710 Acquired absence of both cervix and uterus; Z68.29 Body mass index [BMI] 29.0-29.9, adult
CPT/HCPCS: 731102650; 73110-50; 99283

== ENCOUNTER 2024-02-04 14:21 | Emergency (ER) | payer MEDICAID ==
[2024-02-04 15:16] VITALS: BP 142/91; PULSE 91
[2024-02-04] MEDS: Sodium Chloride 0.9% 1,000 ML IV ONE (16:08)
[2024-02-04] MEDS: SUMAtriptan 6 MG/0.5 ML SDV SUBCUT ONE (16:08)
== END 2024-02-04 18:26 | disposition home or self-care (01) ==
LOC: JD.ED 14:21
DX: G43.909 Migraine, unspecified, not intractable, without status migrainosus (principal); E86.9 Volume depletion, unspecified; J45.909 Unspecified asthma, uncomplicated; E66.9 Obesity, unspecified; Z68.28 Body mass index [BMI] 28.0-28.9, adult; Z88.0 Allergy status to penicillin; Z91.018 Allergy to other foods; Z88.5 Allergy status to narcotic agent; Z88.6 Allergy status to analgesic agent; Z91.048 Other nonmedicinal substance allergy status; Z79.899 Other long term (current) drug therapy; Z90.710 Acquired absence of both cervix and uterus
CPT/HCPCS: 70450; 96372; 99283; J3030

== ENCOUNTER 2024-04-12 15:57 | Emergency (ER) | payer MEDICAID ==
[2024-04-12] MEDS: Ofloxacin 0.3% Ophth Soln 5 ML Bottle EYELF ONE (17:22)
[2024-04-12] MEDS: Fluorescein 1 MG Ophth Strip EYELF ONE (17:23)
[2024-04-12 17:28] VITALS: BP 128/96; PULSE 69
== END 2024-04-12 17:27 | disposition critical access hospital (66) ==
LOC: JD.ED 15:57
DX: S05.02XA Injury of conjunctiva and corneal abrasion without foreign body, left eye, initial encounter (principal); H53.142 Visual discomfort, left eye; J45.909 Unspecified asthma, uncomplicated; E66.9 Obesity, unspecified; Z68.27 Body mass index [BMI] 27.0-27.9, adult; Z86.16 Personal history of COVID-19; Z90.710 Acquired absence of both cervix and uterus; Z79.899 Other long term (current) drug therapy; Z91.041 Radiographic dye allergy status; Z88.0 Allergy status to penicillin; Z91.018 Allergy to other foods; Z91.048 Other nonmedicinal substance allergy status; Z88.6 Allergy status to analgesic agent; Z88.8 Allergy status to other drugs, medicaments and biological substances; Z88.9 Allergy status to unspecified drugs, medicaments and biological substances; Y77.11 Contact lens associated with adverse incidents
CPT/HCPCS: 99283; A9270-GY

== ENCOUNTER 2024-04-13 09:06 | Emergency (ER) | payer MEDICAID ==
[2024-04-13] MEDS: cloNIDine 0.1 MG Tab PO ONE (10:08)
[2024-04-13 11:04] LABS: BASOPHILS PERCENT AUTO 0.4 % (0.0-1.0); EOSINOPHILS ABSOLUTE AUTO 0.1 K/mm3 (0.0-0.4); EOSINOPHILS PERCENT AUTO 1.1 % (0.0-6.0); HEMATOCRIT 36.5 % (37.0-47.0); IMMATURE GRAN ABSOLUTE AUTO 0.03 K/mm3 (0.00-0.05); IMMATURE GRAN PERCENT AUTO 0.3 % (0.0-0.4); LYMPHOCYTES ABSOLUTE AUTO 2.8 K/mm3 (1.0-4.8); LYMPHOCYTES PERCENT AUTO 28.7 % (24.0-44.0); MEAN CORPUSCULAR HEMOGLOBIN 27.1 pg (28.0-32.0); MEAN CORPUSCULAR HGB CONC 32.9 g/dl (32.0-36.0); MEAN CORPUSCULAR VOLUME 82.6 fl (83.0-99.0); MEAN PLATELET VOLUME 8.9 fl (9.4-12.3); MONOCYTES ABSOLUTE AUTO 0.8 K/mm3 (0.0-0.8); MONOCYTES PERCENT AUTO 8.5 % (0.0-8.0); RED BLOOD CELL COUNT 4.42 M/mm3 (4.10-5.30); WHITE BLOOD CELL COUNT,WBC 9.86 K/mm3 (3.9-11.3)
[2024-04-13 11:05] LABS: PLATELET COUNT,PLT 325 K/mm3 (150-400)
[2024-04-13 11:11] LABS: CORONAVIRUS COVID-19 NAA NEGATIVE (NEGATIVE); INFLUENZA A NAA NEGATIVE (NEGATIVE); RESPIRATORY SYNCYTIAL VIR NAA NEGATIVE (NEGATIVE)
[2024-04-13 11:20] LABS: A/G RATIO 0.7 (1-2); ALBUMIN 2.9 g/dl (3.4-5.0); BILIRUBIN TOTAL 0.5 mg/dL (0.2-1.0); BUN/CREATININE RATIO 14.4 (14-18); CALCIUM 9.4 mg/dL (8.5-10.1); CREATININE 0.9 mg/dL (0.55-1.02); EST CRCL DRUG DOSING (CG) 77.67 mL/min; MAGNESIUM 1.6 mg/dL (1.8-2.4); PROTEIN TOTAL,TP 7.3 g/dl (6.4-8.2)
[2024-04-13] MEDS: Magnesium Oxide 400 MG Tab PO ONE (13:28)
[2024-04-13] MEDS: Potassium Chloride 20 MEQ Tab.ER PO ONE (13:28)
[2024-04-13 16:05] VITALS: BP 134/92; PULSE 116
== END 2024-04-13 13:35 | disposition home or self-care (01) ==
LOC: JD.ED 09:06 → SUPCPDRO 09:06 → JD.ED 13:30
DX: E87.6 Hypokalemia (principal); R11.2 Nausea with vomiting, unspecified; M79.10 Myalgia, unspecified site; J45.909 Unspecified asthma, uncomplicated; E66.9 Obesity, unspecified; Z68.27 Body mass index [BMI] 27.0-27.9, adult; Z86.16 Personal history of COVID-19; Z90.710 Acquired absence of both cervix and uterus; Z79.899 Other long term (current) drug therapy; Z91.041 Radiographic dye allergy status; Z88.0 Allergy status to penicillin; Z91.018 Allergy to other foods; Z88.5 Allergy status to narcotic agent; Z91.048 Other nonmedicinal substance allergy status; Z88.1 Allergy status to other antibiotic agents; Z88.8 Allergy status to other drugs, medicaments and biological substances; Z88.6 Allergy status to analgesic agent
CPT/HCPCS: 0241U; 36415; 80053; 83735; 85025; 93005; 99284; A9270; 93010

== ENCOUNTER 2024-04-14 08:24 | Emergency (ER) | payer MEDICAID ==
[2024-04-14 09:37] VITALS: BP 132/89; PULSE 99
== END 2024-04-14 09:20 | disposition home or self-care (01) ==
LOC: JD.ED 08:24
DX: M79.10 Myalgia, unspecified site (principal); E66.9 Obesity, unspecified; Z86.16 Personal history of COVID-19; Z87.39 Personal history of other diseases of the musculoskeletal system and connective tissue; Z90.710 Acquired absence of both cervix and uterus; Z79.899 Other long term (current) drug therapy; Z79.51 Long term (current) use of inhaled steroids; Z91.018 Allergy to other foods; Z88.5 Allergy status to narcotic agent; Z88.8 Allergy status to other drugs, medicaments and biological substances; Z91.09 Other allergy status, other than to drugs and biological substances; Z88.0 Allergy status to penicillin; Z91.041 Radiographic dye allergy status; Z68.27 Body mass index [BMI] 27.0-27.9, adult
CPT/HCPCS: 99283

== ENCOUNTER 2024-04-16 03:36 | Emergency (ER) | payer MEDICAID ==
[2024-04-16 03:51] VITALS: BP 142/84; PULSE 125
== END 2024-04-16 03:37 | disposition left against medical advice (07) ==
LOC: EDUNIT# → EDBD 03:36 → JD.ED 03:36
DX: Z53.21 Procedure and treatment not carried out due to patient leaving prior to being seen by health care provider (principal)

== ENCOUNTER 2024-04-16 03:55 | Emergency (ER) | payer MEDICAID ==
[2024-04-16 05:14] VITALS: BP 143/73; PULSE 124
== END 2024-04-16 05:06 | disposition home or self-care (01) ==
LOC: JD.ED 03:55
DX: S63.502A Unspecified sprain of left wrist, initial encounter (principal); E66.9 Obesity, unspecified; Z86.16 Personal history of COVID-19; Z90.710 Acquired absence of both cervix and uterus; Z79.899 Other long term (current) drug therapy; Z79.51 Long term (current) use of inhaled steroids; Z79.2 Long term (current) use of antibiotics; Z88.5 Allergy status to narcotic agent; Z88.8 Allergy status to other drugs, medicaments and biological substances; Z88.0 Allergy status to penicillin; Z91.018 Allergy to other foods; Z91.041 Radiographic dye allergy status; Z91.048 Other nonmedicinal substance allergy status; Z68.25 Body mass index [BMI] 25.0-25.9, adult; W19.XXXA Unspecified fall, initial encounter
CPT/HCPCS: 73110-26-LT; 73110-LT; 99283; 99284

== ENCOUNTER 2024-04-19 08:55 | Emergency (ER) | payer MEDICAID ==
[2024-04-19 09:09] VITALS: BP 144/97; PULSE 101
[2024-04-19 11:15] LABS: BASOPHILS PERCENT AUTO 0.4 % (0.0-1.0); EOSINOPHILS ABSOLUTE AUTO 0.2 K/mm3 (0.0-0.4); EOSINOPHILS PERCENT AUTO 1.7 % (0.0-6.0); HEMOGLOBIN 12.4 gm/dl (12.0-16.0); IMMATURE GRAN ABSOLUTE AUTO 0.01 K/mm3 (0.00-0.05); IMMATURE GRAN PERCENT AUTO 0.1 % (0.0-0.4); LYMPHOCYTES ABSOLUTE AUTO 2.6 K/mm3 (1.0-4.8); LYMPHOCYTES PERCENT AUTO 29.4 % (24.0-44.0); MEAN CORPUSCULAR HEMOGLOBIN 26.7 pg (28.0-32.0); MEAN CORPUSCULAR HGB CONC 32.6 g/dl (32.0-36.0); MEAN CORPUSCULAR VOLUME 81.7 fl (83.0-99.0); MEAN PLATELET VOLUME 8.7 fl (9.4-12.3); MONOCYTES ABSOLUTE AUTO 0.7 K/mm3 (0.0-0.8); NEUTROPHILS ABSOLUTE AUTO 5.4 K/mm3 (1.8-7.7); NEUTROPHILS PERCENT AUTO 60.4 % (41.0-71.0); PLATELET COUNT,PLT 381 K/mm3 (150-400); RED BLOOD CELL COUNT 4.65 M/mm3 (4.10-5.30); WHITE BLOOD CELL COUNT,WBC 8.89 K/mm3 (3.9-11.3)
[2024-04-19 11:31] LABS: A/G RATIO 0.7 (1-2); ANION GAP 12.1 (5-15); BILIRUBIN TOTAL 0.3 mg/dL (0.2-1.0); CALCIUM 9.7 mg/dL (8.5-10.1); EST CRCL DRUG DOSING (CG) 69.9 mL/min; MAGNESIUM 1.8 mg/dL (1.8-2.4); POTASSIUM,K 3.1 mEq/L (3.5-5.1); PROTEIN TOTAL,TP 7.4 g/dl (6.4-8.2)
[2024-04-19] MEDS: Potassium Chloride 20 MEQ Tab.ER PO ONE (13:48)
== END 2024-04-19 13:50 | disposition home or self-care (01) ==
LOC: JD.ED 08:55
DX: M79.10 Myalgia, unspecified site (principal); E87.6 Hypokalemia; J45.909 Unspecified asthma, uncomplicated; E66.9 Obesity, unspecified; Z79.82 Long term (current) use of aspirin; Z79.899 Other long term (current) drug therapy; Z86.16 Personal history of COVID-19; Z88.8 Allergy status to other drugs, medicaments and biological substances; Z91.048 Other nonmedicinal substance allergy status; Z91.018 Allergy to other foods; Z88.0 Allergy status to penicillin; Z91.041 Radiographic dye allergy status; Z88.5 Allergy status to narcotic agent
CPT/HCPCS: 36415; 80053; 83735; 85025; 99283; A9270

== ENCOUNTER 2024-06-10 10:50 | Emergency (ER) | payer MEDICAID ==
[2024-06-10] MEDS ORDERED: Ketorolac 60 MG/2 ML SDV IM ONE (13:23)
[2024-06-10] MEDS: Ibuprofen 800 MG Tab PO ONE (13:51)
[2024-06-10 15:44] VITALS: BP 143/79; PULSE 113
== END 2024-06-10 14:26 | disposition home or self-care (01) ==
LOC: JD.ED 10:50
DX: S69.92XA Unspecified injury of left wrist, hand and finger(s), initial encounter (principal); J45.909 Unspecified asthma, uncomplicated; E66.9 Obesity, unspecified; Z88.0 Allergy status to penicillin; Z88.5 Allergy status to narcotic agent; Z91.041 Radiographic dye allergy status; Z88.6 Allergy status to analgesic agent; Z88.8 Allergy status to other drugs, medicaments and biological substances; Z91.018 Allergy to other foods; Z86.16 Personal history of COVID-19; Z90.710 Acquired absence of both cervix and uterus; Z68.30 Body mass index [BMI] 30.0-30.9, adult; W19.XXXA Unspecified fall, initial encounter
CPT/HCPCS: 73110; 73130; 99283; A9270; 99282

== ENCOUNTER 2024-07-07 07:29 | Emergency (ER) | payer MEDICAID ==
[2024-07-07] MEDS: Acetaminophen 325 MG Tab PO ONE (09:19)
[2024-07-07 10:23] VITALS: BP 107/75; PULSE 81
== END 2024-07-07 09:00 | disposition home or self-care (01) ==
LOC: JD.ED 07:29
DX: S63.502A Unspecified sprain of left wrist, initial encounter (principal); J45.909 Unspecified asthma, uncomplicated; E66.9 Obesity, unspecified; Z68.27 Body mass index [BMI] 27.0-27.9, adult; Z86.16 Personal history of COVID-19; Z90.710 Acquired absence of both cervix and uterus; Z88.0 Allergy status to penicillin; Z88.5 Allergy status to narcotic agent; Z91.041 Radiographic dye allergy status; Z91.018 Allergy to other foods; Z91.048 Other nonmedicinal substance allergy status; Z79.51 Long term (current) use of inhaled steroids; Z79.899 Other long term (current) drug therapy; W01.0XXA Fall on same level from slipping, tripping and stumbling without subsequent striking against object, initial encounter
CPT/HCPCS: 73110; 99283; A9270

== ENCOUNTER 2024-07-09 09:57 | Emergency (ER) | payer MEDICAID ==
[2024-07-09 10:22] VITALS: BP 116/76; PULSE 77
== END 2024-07-09 10:19 | disposition home or self-care (01) ==
LOC: JD.ED 09:57
DX: G89.29 Other chronic pain (principal); M25.532 Pain in left wrist; M06.9 Rheumatoid arthritis, unspecified; M79.7 Fibromyalgia; J45.909 Unspecified asthma, uncomplicated; E66.9 Obesity, unspecified; Z88.0 Allergy status to penicillin; Z88.5 Allergy status to narcotic agent; Z88.6 Allergy status to analgesic agent; Z88.8 Allergy status to other drugs, medicaments and biological substances; Z91.041 Radiographic dye allergy status; Z91.018 Allergy to other foods; Z79.899 Other long term (current) drug therapy; Z86.16 Personal history of COVID-19; Z90.710 Acquired absence of both cervix and uterus; Z68.30 Body mass index [BMI] 30.0-30.9, adult
CPT/HCPCS: 99283

== ENCOUNTER 2024-08-05 10:41 | Emergency (ER) | payer MEDICAID ==
[2024-08-05 11:01] VITALS: BP 135/93; PULSE 111
[2024-08-05 12:23] LABS: BASOPHILS PERCENT AUTO 0.5 % (0.0-1.0); EOSINOPHILS ABSOLUTE AUTO 0.1 K/mm3 (0.0-0.4); EOSINOPHILS PERCENT AUTO 1.6 % (0.0-6.0); HEMATOCRIT 39.2 % (37.0-47.0); IMMATURE GRAN ABSOLUTE AUTO 0.02 K/mm3 (0.00-0.05); IMMATURE GRAN PERCENT AUTO 0.3 % (0.0-0.4); LYMPHOCYTES ABSOLUTE AUTO 2.6 K/mm3 (1.0-4.8); LYMPHOCYTES PERCENT AUTO 33.7 % (24.0-44.0); MEAN CORPUSCULAR HEMOGLOBIN 26.9 pg (28.0-32.0); MEAN CORPUSCULAR HGB CONC 33.2 g/dl (32.0-36.0); MEAN CORPUSCULAR VOLUME 81.2 fl (83.0-99.0); MEAN PLATELET VOLUME 9.3 fl (9.4-12.3); MONOCYTES ABSOLUTE AUTO 0.5 K/mm3 (0.0-0.8); MONOCYTES PERCENT AUTO 6.9 % (0.0-8.0); NEUTROPHILS ABSOLUTE AUTO 4.4 K/mm3 (1.8-7.7); PLATELET COUNT,PLT 460 K/mm3 (150-400); RED BLOOD CELL COUNT 4.83 M/mm3 (4.10-5.30); WHITE BLOOD CELL COUNT,WBC 7.63 K/mm3 (3.9-11.3)
[2024-08-05 12:28] LABS: A/G RATIO 0.7 (1-2); ALBUMIN 3.1 g/dl (3.4-5.0); ANION GAP 13.8 (5-15); BILIRUBIN TOTAL 0.3 mg/dL (0.2-1.0); CALCIUM 9.3 mg/dL (8.5-10.1); CREATININE 0.9 mg/dL (0.55-1.02); EST CRCL DRUG DOSING (CG) 76.71 mL/min; POTASSIUM,K 2.8 mEq/L (3.5-5.1); PROTEIN TOTAL,TP 7.6 g/dl (6.4-8.2)
[2024-08-05] MEDS ORDERED: droPERidol 2.5 MG/ML SDV IM ONE (12:39)
[2024-08-05] MEDS: Potassium Chloride 20 MEQ Tab.ER PO ONE (13:02)
[2024-08-05] MEDS: Metoclopramide 10 MG/2 ML SDV IM ONE (13:03)
== END 2024-08-05 14:30 | disposition home or self-care (01) ==
LOC: JD.ED 10:41
DX: R52 Pain, unspecified (principal); E66.9 Obesity, unspecified; Z86.16 Personal history of COVID-19; Z90.710 Acquired absence of both cervix and uterus; Z79.51 Long term (current) use of inhaled steroids; Z79.899 Other long term (current) drug therapy; Z88.5 Allergy status to narcotic agent; Z88.8 Allergy status to other drugs, medicaments and biological substances; Z88.0 Allergy status to penicillin; Z91.041 Radiographic dye allergy status; Z91.018 Allergy to other foods; Z68.29 Body mass index [BMI] 29.0-29.9, adult
CPT/HCPCS: 36415; 80053; 85025; 87428; 96372; 99284; A9270; J2765

== ENCOUNTER 2024-08-08 19:30 | Emergency (ER) | payer MEDICAID ==
[2024-08-08 19:40] VITALS: PULSE 98
[2024-08-08] MEDS: HYDROmorphone 1 MG/ML Syringe IM ONE (20:19)
[2024-08-08] MEDS: Prochlorperazine 10 MG/2 ML SDV IM ONE (21:16)
[2024-08-08] MEDS: diphenhydrAMINE 50 MG/ML SDV IM ONE (21:16)
[2024-08-08 21:21] VITALS: BP 147/98
== END 2024-08-08 21:20 | disposition home or self-care (01) ==
LOC: JD.ED 19:30
DX: S63.502A Unspecified sprain of left wrist, initial encounter (principal); S16.1XXA Strain of muscle, fascia and tendon at neck level, initial encounter; S09.90XA Unspecified injury of head, initial encounter; Z91.048 Other nonmedicinal substance allergy status; Z88.0 Allergy status to penicillin; Z88.5 Allergy status to narcotic agent; Z91.018 Allergy to other foods; Z79.899 Other long term (current) drug therapy; Z86.16 Personal history of COVID-19; W01.198A Fall on same level from slipping, tripping and stumbling with subsequent striking against other object, initial encounter; Y93.89 Activity, other specified
CPT/HCPCS: 70450; 72125; 73110; 96372; 99284; J0780; J1171; J1200

== ENCOUNTER 2024-09-04 08:21 | Emergency (ER) | payer MEDICAID ==
[2024-09-04 08:52] VITALS: BP 124/83; PULSE 110
[2024-09-04] MEDS: Acetaminophen 325 MG Tab PO ONE (10:49)
== END 2024-09-04 11:30 | disposition home or self-care (01) ==
LOC: JD.ED 08:21
DX: M25.532 Pain in left wrist (principal); J45.909 Unspecified asthma, uncomplicated; E66.9 Obesity, unspecified; Z91.041 Radiographic dye allergy status; Z88.8 Allergy status to other drugs, medicaments and biological substances; Z88.0 Allergy status to penicillin; Z86.16 Personal history of COVID-19; Z90.710 Acquired absence of both cervix and uterus; Z79.899 Other long term (current) drug therapy; Z88.6 Allergy status to analgesic agent; Z68.28 Body mass index [BMI] 28.0-28.9, adult; W22.09XA Striking against other stationary object, initial encounter
CPT/HCPCS: 70450; 73110; 99284; A9270

== ENCOUNTER 2024-09-30 14:51 | Emergency (ER) | payer MEDICAID ==
[2024-09-30 15:11] VITALS: BP 126/112; PULSE 109
== END 2024-09-30 17:21 | disposition home or self-care (01) ==
LOC: JD.ED 14:51
DX: J02.9 Acute pharyngitis, unspecified (principal); J45.909 Unspecified asthma, uncomplicated; E66.9 Obesity, unspecified; Z68.24 Body mass index [BMI] 24.0-24.9, adult; Z90.710 Acquired absence of both cervix and uterus; Z88.0 Allergy status to penicillin; Z88.5 Allergy status to narcotic agent; Z88.8 Allergy status to other drugs, medicaments and biological substances; Z91.018 Allergy to other foods; Z91.041 Radiographic dye allergy status; Z79.51 Long term (current) use of inhaled steroids; Z79.899 Other long term (current) drug therapy
CPT/HCPCS: 87651; 99283

== ENCOUNTER 2025-03-28 12:19 | Emergency (ER) | payer MEDICAID ==
[2025-03-28 14:36] VITALS: BP 149/64; PULSE 70
== END 2025-03-28 14:36 | disposition home or self-care (01) ==
LOC: JD.ED 12:19
DX: M19.031 Primary osteoarthritis, right wrist (principal); M19.032 Primary osteoarthritis, left wrist; K21.9 Gastro-esophageal reflux disease without esophagitis; J45.909 Unspecified asthma, uncomplicated; Z90.710 Acquired absence of both cervix and uterus; Z79.899 Other long term (current) drug therapy; Z88.8 Allergy status to other drugs, medicaments and biological substances; Z88.6 Allergy status to analgesic agent; Z91.048 Other nonmedicinal substance allergy status; Z88.0 Allergy status to penicillin; Z91.018 Allergy to other foods; Z88.5 Allergy status to narcotic agent; Z91.041 Radiographic dye allergy status
CPT/HCPCS: 73110; 99283; A9270